=== PATIENT | male | born 1980 | race African-American/Black ===

== ENCOUNTER 2019-02-03 19:51 | Emergency (ER) | payer OTHER ==
[~2019-02-03] VITALS: Ht 167.6 cm; Wt 147.6 kg
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
--- OUTSIDE RECORDS SUMMARY | 2019-02-03 19:55 | XMS REPORT | Continuity of Care Document ---
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 CDTNotes: (Same as: BD Posiflush) Inactive 10/09/2016 [facility] Albuterol 0.833 MG/ML / Ipratropium [place] 0.167 MG/ML Inhalant Solution [DuoNeb] 3 ml, Route: NEB, Drug Form: SOLN, Dosing Weight 154.545, kg, ONCE, PRN Respiratory Protocol, Start date: 07/30/16 6:52:00 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 Inactive 07/30/2016 [facility] Dexamethasone 10 mg, Route: IM, ONCE, Dosing Weight 154.545, kg, Priority: STAT, 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, 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/16 6:51:00 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 Inactive 07/30/2016 [facility] Tylenol with Codeine 120 mg-12 mg/5 mL oral liquid 15 ml, PO, Q6H, PRN Cough, X 2 day, # 120 mL, 0 Refill(s) No Longer Active 07/30/2016 [facility] predniSONE 20 mg oral tablet 60 mg=3 tab, PO, Daily, Take 3 tablets for 60 mg dose, X 2 day, # 6 tab, 0 Refill(s) No Longer Active 07/30/2016 [facility] 200 ACTUAT Albuterol 0.09 MG/ACTUAT Metered Dose Inhaler 2 puff, INHALATION, Q4H, PRN for wheezing, # 9 gm, 0 Refill(s) Active 07/30/2016 [facility] {6 (Azithromycin 250 MG Oral Tablet [Zithromax]) } Pack [Z-PAKS] 250 mg, PO, Daily, Take 2 tablets by mouth the first day then 1 tablet by mouth days 2-5, X 5 day, # 6 tab, 0 Refill(s) Active 07/30/2016 [facility] Albuterol 0.833 MG/ML / Ipratropium [place] 0.167 MG/ML Inhalant Solution [DuoNeb] 6 mL, Route: NEB, Dosing Weight 154.545, kg, ONCE, Start date: 07/30/16 2:18:00 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, 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/16 2:18:00 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 Inactive 07/30/2016 [facility] Tylenol 650 mg, Route: PO, Drug form: TAB, ONCE, Dosing Weight 154.545, kg, Priority: STAT, Start date: 07/30/16 1:50:00 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, 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/16 1:50:00 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 Inactive 07/30/2016 [facility] Allergies, Adverse Reactions, Alerts No Known Medication Allergies Immunizations No Data Provided for This Section Results Order Name Results Value Reference Range Date Interpretation Comments Source ELECTROLYTES AGAP 13.4 10.0 - 20.0 09/21/2018 [facility] ELECTROLYTES eGFR 125 09/21/2018 Result Comment: The eGFR is calculated using the [...] from the National Kidney Disease Education Program (NKDEP) which additionally recommends that when the eGFR is used in patients with extremes of body mass index for purposes of drug dosing, the eGFR should be multiplied by the estimated BMI. [facility] ELECTROLYTES Glucose Lvl 115 70 - 99 09/21/2018 [facility] ELECTROLYTES BUN 14 7 - 22 09/21/2018 [facility] ELECTROLYTES Potassium Lvl 4.4 3.5 - 5.1 09/21/2018 [facility] ELECTROLYTES CO2 24 24 - 32 09/21/2018 [facility] ELECTROLYTES Chloride Lvl 105 95 - 109 09/21/2018 [facility] ELECTROLYTES Calcium Lvl 8.9 8.5 - 10.5 09/21/2018 [facility] ELECTROLYTES Sodium Lvl 138 135 - 145 09/21/2018 [facility] ELECTROLYTES Creatinine Lvl 0.87 0.50 - 1.40 09/21/2018 [facility] HEMATOLOGY Basophils # 0.1 0.0 - 0.2 09/21/2018 [facility] HEMATOLOGY Eosinophils # 0.2 0.0 - 0.5 09/21/2018 [facility] HEMATOLOGY Monocytes # 0.5 0.0 - 0.8 09/21/2018 [facility] HEMATOLOGY Lymphocytes # 1.3 1.0 - 5.5 09/21/2018 [facility] HEMATOLOGY Neutrophils # 4.3 1.5 - 8.1 09/21/2018 [facility] HEMATOLOGY Basophils 0.8 0.0 - 1.0 09/21/2018 [facility] HEMATOLOGY Eosinophils 2.6 0.0 - 4.0 09/21/2018 [facility] HEMATOLOGY Monocytes 8.5 2.0 - 12.0 09/21/2018 [facility] HEMATOLOGY Lymphocytes 20.9 20.0 - 40.0 09/21/2018 [facility] HEMATOLOGY Segs 67.2 45.0 - 75.0 09/21/2018 [facility] HEMATOLOGY Hct 32.2 42.0 - 54.0 09/21/2018 [facility] HEMATOLOGY Hgb 10.5 14.0 - 18.0 09/21/2018 [facility] HEMATOLOGY RBC 3.86 4.70 - 6.10 09/21/2018 [facility] HEMATOLOGY MCHC 32.4 32.0 - 36.0 09/21/2018 [facility] HEMATOLOGY MCH 27.1 27.0 - 31.0 09/21/2018 [facility] HEMATOLOGY MCV 83.6 80.0 - 94.0 09/21/2018 [facility] HEMATOLOGY MPV 8.2 7.4 - 10.4 09/21/2018 [facility] HEMATOLOGY Platelet 277 133 - 450 09/21/2018 [facility] HEMATOLOGY RDW 14.2 11.5 - 14.5 09/21/2018 [facility] HEMATOLOGY WBC 6.4 3.7 - 10.4 09/21/2018 [facility] IMMUNOLOGY Prealbumin 13.4 18.0 - 45.0 09/21/2018 [facility] TOXICOLOGY Vanco Tr TND 202909/20/2018 [facility] TOXICOLOGY Vanco Tr 12.2 09/20/2018 [facility] Culture: Anaerobic No Anaerobes Isolated 09/19/2018 [facility] Gram Stain Report Rare WBC's No Organisms Seen 09/19/2018 [facility] Culture: Aspirate/Body Fluid/Tissue Rare Staphylococcus aureus Refer To Culture # [id number], Collected on 09/19/18 For Susceptibility Results 09/19/2018 [facility] Culture: Anaerobic No Anaerobes Isolated 09/19/2018 [facility] Gram Stain Report No Wbc'S Or Organisms Seen 09/19/2018 [facility] Culture: Aspirate/Body Fluid/Tissue Rare Staphylococcus aureus Refer To Culture # [id number], Collected on 09/19/18 For Susceptibility Results Rare Staphylococcus Species, Not S. aureus Rare Gram Pos Rods Suggestive of Diphtheroids 09/19/2018 [facility] TETRACYCLINE:SUSC:PT:ISOLATE:ORDQN:MONISHA Gram Stain Report Rare WBC's No Organisms Seen 09/19/2018 [facility] TETRACYCLINE:SUSC:PT:ISOLATE:ORDQN:MONISHA Culture: Aspirate/Body Fluid/Tissue Few Staphylococcus aureus 09/19/2018 [facility] TETRACYCLINE:SUSC:PT:ISOLATE:ORDQN:MONISHA Staphylococcus aureus Staphylococcus aureus 09/19/2018 [facility] Culture: Anaerobic No Anaerobes Isolated 09/19/2018 [facility] BLOOD BANK RESULTS ABO/Rh O POS 09/19/2018 [facility] BLOOD BANK RESULTS Antibody Scrn Negative (09/19/18 7:12 AM) 09/19/2018 [facility] CHEM PANEL eGFR 112 09/19/2018 Result Comment: The eGFR is calculated using the [...] from the National Kidney Disease Education Program (NKDEP) which additionally recommends that when the eGFR is used in patients with extremes of body mass index for purposes of drug dosing, the eGFR should be multiplied by the estimated BMI. [facility] CHEM PANEL Creatinine Lvl 0.97 0.50 - 1.40 09/19/2018 [facility] CHEM PANEL BUN 18 7 - 22 09/19/2018 [facility] CHEM PANEL Potassium Lvl 4.3 3.5 - 5.1 09/19/2018 [facility] CHEM PANEL Sodium Lvl 139 135 - 145 09/19/2018 [facility] CHEM PANEL Glucose Lvl 103 70 - 99 09/19/2018 [facility] CHEM PANEL Calcium Lvl 8.7 8.5 - 10.5 09/19/2018 [facility] CHEM PANEL AGAP 12.3 10.0 - 20.0 09/19/2018 [facility] CHEM PANEL CO2 26 24 - 32 09/19/2018 [facility] CHEM PANEL Chloride Lvl 105 95 - 109 09/19/2018 [facility] CHEM PANEL eGFR 114 09/19/2018 Result Comment: The eGFR is calculated using the [...] from the National Kidney Disease Education Program (NKDEP) which additionally recommends that when the eGFR is used in patients with extremes of body mass index for purposes of drug dosing, the eGFR should be multiplied by the estimated BMI. [facility] CHEM PANEL Calcium Lvl 8.7 8.5 - 10.5 09/19/2018 [facility] CHEM PANEL AGAP 7.5 10.0 - 20.0 09/19/2018 [facility] CHEM PANEL Sodium Lvl 135 135 - 145 09/19/2018 [facility] CHEM PANEL Potassium Lvl 4.5 3.5 - 5.1 09/19/2018 [facility] CHEM PANEL Chloride Lvl 104 95 - 109 09/19/2018 [facility] CHEM PANEL CO2 28 24 - 32 09/19/2018 [facility] CHEM PANEL Glucose Lvl 104 70 - 99 09/19/2018 [facility] CHEM PANEL BUN 21 7 - 22 09/19/2018 [facility] CHEM PANEL Creatinine Lvl 0.96 0.50 - 1.40 09/19/2018 [facility] HEMATOLOGY Basophils 0.6 0.0 - 1.0 09/19/2018 [facility] HEMATOLOGY Eosinophils 2.0 0.0 - 4.0 09/19/2018 [facility] Neutrophils # 4.1 1.5 - 8.1 09/19/2018 [facility] Lymphocytes # 1.3 1.0 - 5.5 09/19/2018 [facility] HEMATOLOGY Monocytes # 0.6 0.0 - 0.8 09/19/2018 [facility] Eosinophils # 0.1 0.0 - 0.5 09/19/2018 [facility] Segs 66.5 45.0 - 75.0 09/19/2018 [facility] Lymphocytes 21.7 20.0 - 40.0 09/19/2018 [facility] Monocytes 9.2 2.0 - 12.0 09/19/2018 [facility] PTT 41.3 22.9 - 35.8 09/19/2018 [facility] PT 14.6 12.0 - 14.7 09/19/2018 [facility] INR 1.16 0.85 - 1.17 09/19/2018 [facility] MCH 27.1 27.0 - 31.0 09/19/2018 [facility] MCV 84.2 80.0 - 94.0 09/19/2018 [facility] RBC 4.15 4.70 - 6.10 09/19/2018 [facility] Hct 34.9 42.0 - 54.0 09/19/2018 [facility] Hgb 11.2 14.0 - 18.0 09/19/2018 [facility] MPV 8.3 7.4 - 10.4 09/19/2018 [facility] Platelet 310 133 - 450 09/19/2018 [facility] MCHC 32.2 32.0 - 36.0 09/19/2018 [facility] WBC 6.2 3.7 - 10.4 09/19/2018 [facility] RDW 14.3 11.5 - 14.5 09/19/2018 [facility] AMPICILLIN+SULBACTAM:SUSC:PT:ISOLATE:ORDQN:MONISHA Gram Stain Report No Wbc'S Or Organisms Seen 09/18/2018 [facility] AMPICILLIN+SULBACTAM:SUSC:PT:ISOLATE:ORDQN:MONISHA Culture: Wound/Abscess w/Gram Stain Moderate Staphylococcus aureus Few Group B Streptococcus No susceptibility performed since these organisms are predictably susceptible to penicillin. If patient is penicillin allergic or susceptibility testing for additional antibiotics is clinically warranted please call the laboratory. 09/18/2018 [facility] AMPICILLIN+SULBACTAM:SUSC:PT:ISOLATE:ORDQN:MONISHA Staphylococcus aureus Staphylococcus aureus 09/18/2018 [facility] DRUG SCREEN U Benzodiaz Scr Negative *NA* (09/18/18 12:25 PM) Negative 09/18/2018 [facility] DRUG SCREEN U Cocaine Scr Negative *NA* (09/18/18 12:25 PM) Negative 09/18/2018 [facility] DRUG SCREEN U Opiate Scr Positive *ABN* (09/18/18 12:25 PM) Negative 09/18/2018 [facility] DRUG SCREEN UDS Note See Note (09/18/18 12:25 PM) 09/18/2018 [facility] DRUG SCREEN U Phencyclidine Scr Negative *NA* (09/18/18 12:25 PM) Negative 09/18/2018 [facility] DRUG SCREEN U Cannab Scr Negative *NA* (09/18/18 12:25 PM) Negative 09/18/2018 [facility] DRUG SCREEN U Amph Scr Negative *NA* (09/18/18 12:25 PM) Negative 09/18/2018 [facility] DRUG SCREEN U Herminia Scr Negative *NA* (09/18/18 12:25 PM) Negative 09/18/2018 [facility] URINE AND STOOL UA Mucus Few /LPF None Seen /LPF 09/18/2018 [facility] URINE AND STOOL UA RBC 2 0 - 2 09/18/2018 [facility] URINE AND STOOL UA Bacteria Occasional /HPF None Seen /HPF 09/18/2018 [facility] URINE AND STOOL UA Glucose Negative *NA* (09/18/18 12:25 PM) Negative 09/18/2018 [facility] URINE AND STOOL UA Ketones Negative *NA* (09/18/18 12:25 PM) Negative 09/18/2018 [facility] URINE AND STOOL UA Bili Negative *NA* (09/18/18 12:25 PM) Negative 09/18/2018 [facility] URINE AND STOOL UA Blood Small *ABN* (09/18/18 12:25 PM) Negative 09/18/2018 [facility] URINE AND STOOL UA Sq Epi Few /LPF Few /LPF 09/18/2018 [facility] URINE AND STOOL UA Leuk Est Moderate *ABN* (09/18/18 12:25 PM) Negative 09/18/2018 [facility] URINE AND STOOL UA Protein Negative (09/18/18 12:25 PM) Negative 09/18/2018 [facility] URINE AND STOOL UA WBC 38 0 - 5 09/18/2018 [facility] URINE AND STOOL UA Nitrite Negative (09/18/18 12:25 PM) Negative 09/18/2018 [facility] URINE AND STOOL UA Urobilinogen <=1.0 mg/dL 0.1 - 1.0 09/18/2018 [facility] URINE AND STOOL UA Turbidity Slight *ABN* (09/18/18 12:25 PM) Clear 09/18/2018 [facility] URINE AND STOOL UA pH 5.0 5.0 - 8.0 09/18/2018 [facility] URINE AND STOOL UA Spec Grav 1.019 <=1.030 09/18/2018 [facility] URINE AND STOOL UA Color Yellow *NA* (09/18/18 12:25 PM) Yellow 09/18/2018 [facility] URINE CHEM U Creatinine 142.00 09/18/2018 [facility] URINE CHEM U Sodium 42 09/18/2018 [facility] CARDIAC ENZYMES BNP 192 <=100 pg/mL 09/18/2018 [facility] MPV 8.1 7.4 - 10.4 09/18/2018 [facility] Platelet 310 133 - 450 09/18/2018 [facility] RDW 14.3 11.5 - 14.5 09/18/2018 [facility] RBC 4.20 4.70 - 6.10 09/18/2018 [facility] HEMATOLOGY WBC 7.4 3.7 - 10.4 09/18/2018 [facility] MCH 26.6 27.0 - 31.0 09/18/2018 [facility] MCV 83.5 80.0 - 94.0 09/18/2018 [facility] MCHC 31.9 32.0 - 36.0 09/18/2018 [facility] Hct 35.1 42.0 - 54.0 09/18/2018 [facility] Hgb 11.2 14.0 - 18.0 09/18/2018 [facility] Eosinophils # 0.1 0.0 - 0.5 09/18/2018 [facility] HEMATOLOGY Monocytes # 0.7 0.0 - 0.8 09/18/2018 [facility] HEMATOLOGY Basophils 0.5 0.0 - 1.0 09/18/2018 [facility] HEMATOLOGY Eosinophils 1.3 0.0 - 4.0 09/18/2018 [facility] HEMATOLOGY Monocytes 10.1 2.0 - 12.0 09/18/2018 [facility] HEMATOLOGY Neutrophils # 5.4 1.5 - 8.1 09/18/2018 [facility] Lymphocytes # 1.1 1.0 - 5.5 09/18/2018 [facility] HEMATOLOGY Segs 73.1 45.0 - 75.0 09/18/2018 [facility] HEMATOLOGY Lymphocytes 15.0 20.0 - 40.0 09/18/2018 [facility] CARDIAC ENZYMES Troponin-I <0.02 0.00 - 0.40 08/26/2018 [facility] CHEM PANEL Globulin 5.5 2.7 - 4.2 08/26/2018 [facility] CHEM PANEL AGAP 5.8 10.0 - 20.0 08/26/2018 [facility] CHEM PANEL B/C Ratio 19 6 - 25 08/26/2018 [facility] CHEM PANEL A/G Ratio 0.6 0.7 - 1.6 08/26/2018 [facility] CHEM PANEL Alk Phos 107 39 - 136 08/26/2018 [facility] CHEM PANEL ALT 37 0 - 65 08/26/2018 [facility] CHEM PANEL AST 19 0 - 37 08/26/2018 [facility] CHEM PANEL Bili Total 0.5 0.2 - 1.3 08/26/2018 [facility] CHEM PANEL eGFR 83 08/26/2018 Result Comment: The eGFR is calculated using the [...] from the National Kidney Disease Education Program (NKDEP) which additionally recommends that when the eGFR is used in patients with extremes of body mass index for purposes of drug dosing, the eGFR should be multiplied by the estimated BMI. [facility] CHEM PANEL Creatinine Lvl 1.11 0.50 - 1.40 08/26/2018 [facility] CHEM PANEL Potassium Lvl 3.8 3.5 - 5.1 08/26/2018 [facility] CHEM PANEL BUN 21 7 - 22 08/26/2018 [facility] CHEM PANEL Glucose Lvl 130 70 - 99 08/26/2018 [facility] CHEM PANEL Sodium Lvl 141 135 - 145 08/26/2018 [facility] CHEM PANEL CO2 32 24 - 32 08/26/2018 [facility] CHEM PANEL Calcium Lvl 8.3 8.5 - 10.5 08/26/2018 [facility] CHEM PANEL Chloride Lvl 107 95 - 109 08/26/2018 [facility] CHEM PANEL Total Protein 8.7 6.4 - 8.4 08/26/2018 [facility] CHEM PANEL Albumin Lvl 3.2 3.5 - 5.0 08/26/2018 [facility] HEMATOLOGY PTT 42.8 22.9 - 35.8 08/26/2018 [facility] HEMATOLOGY INR 1.23 0.85 - 1.17 08/26/2018 [facility] HEMATOLOGY PT 15.3 12.0 - 14.7 08/26/2018 [facility] WBC 8.0 3.7 - 10.4 08/26/2018 [facility] RBC 4.11 4.70 - 6.10 08/26/2018 [facility] Hgb 11.4 14.0 - 18.0 08/26/2018 [facility] Hct 34.7 42.0 - 54.0 08/26/2018 [facility] RDW 14.0 11.5 - 14.5 08/26/2018 [facility] Platelet 276 133 - 450 08/26/2018 [facility] MPV 8.8 7.4 - 10.4 08/26/2018 [facility] MCV 84.5 80.0 - 94.0 08/26/2018 [facility] MCH 27.7 27.0 - 31.0 08/26/2018 [facility] MCHC 32.8 32.0 - 36.0 08/26/2018 [facility] Neutrophils # 5.8 1.5 - 8.1 08/26/2018 [facility] Lymphocytes # 1.4 1.0 - 5.5 08/26/2018 [facility] Monocytes # 0.6 0.0 - 0.8 08/26/2018 [facility] HEMATOLOGY Eosinophils # 0.1 0.0 - 0.5 08/26/2018 [facility] HEMATOLOGY Basophils # 0.1 0.0 - 0.2 08/26/2018 [facility] HEMATOLOGY Segs 72.8 45.0 - 75.0 08/26/2018 [facility] HEMATOLOGY Lymphocytes 17.5 20.0 - 40.0 08/26/2018 [facility] HEMATOLOGY Monocytes 7.9 2.0 - 12.0 08/26/2018 [facility] HEMATOLOGY Eosinophils 1.1 0.0 - 4.0 08/26/2018 [facility] HEMATOLOGY Basophils 0.7 0.0 - 1.0 08/26/2018 [facility] CARDIAC ENZYMES Total CK 105 12 - 191 03/07/2018 [facility] CARDIAC ENZYMES Troponin-I <0.02 0.00 - 0.40 03/07/2018 [facility] CARDIAC ENZYMES BNP 200 <=100 pg/mL 03/07/2018 [facility] CHEM PANEL Phosphorus 3.2 2.5 - 4.5 03/07/2018 [facility] CHEM PANEL Lipase Lvl 63 73 - 393 03/07/2018 [facility] CHEM PANEL Magnesium Lvl 2.0 1.8 - 2.4 03/07/2018 [facility] ELECTROLYTES AGAP 15.0 10.0 - 20.0 03/07/2018 [facility] ELECTROLYTES B/C Ratio 16 6 - 25 03/07/2018 [facility] ELECTROLYTES A/G Ratio 0.7 0.7 - 1.6 03/07/2018 [facility] ELECTROLYTES Globulin 4.9 2.7 - 4.2 03/07/2018 [facility] ELECTROLYTES eGFR 125 03/07/2018 Result Comment: The eGFR is calculated using the [...] from the National Kidney Disease Education Program (NKDEP) which additionally recommends that when the eGFR is used in patients with extremes of body mass index for purposes of drug dosing, the eGFR should be multiplied by the estimated BMI. [facility] ELECTROLYTES Alk Phos 70 39 - 136 03/07/2018 [facility] ELECTROLYTES ALT 32 0 - 65 03/07/2018 [facility] ELECTROLYTES AST 20 0 - 37 03/07/2018 [facility] ELECTROLYTES Bili Total 0.8 0.2 - 1.3 03/07/2018 [facility] ELECTROLYTES Total Protein 8.5 6.4 - 8.4 03/07/2018 [facility] ELECTROLYTES Albumin Lvl 3.6 3.5 - 5.0 03/07/2018 [facility] ELECTROLYTES CO2 24 24 - 32 03/07/2018 [facility] ELECTROLYTES Calcium Lvl 8.5 8.5 - 10.5 03/07/2018 [facility] ELECTROLYTES Chloride Lvl 107 95 - 109 03/07/2018 [facility] ELECTROLYTES Creatinine Lvl 0.87 0.50 - 1.40 03/07/2018 [facility] ELECTROLYTES Sodium Lvl 142 135 - 145 03/07/2018 [facility] ELECTROLYTES Potassium Lvl 4.0 3.5 - 5.1 03/07/2018 [facility] ELECTROLYTES BUN 14 7 - 22 03/07/2018 [facility] ELECTROLYTES Glucose Lvl 101 70 - 99 03/07/2018 [facility] HEMATOLOGY Lymphocytes 23.2 20.0 - 40.0 03/07/2018 [facility] HEMATOLOGY Segs 62.9 45.0 - 75.0 03/07/2018 [facility] HEMATOLOGY Monocytes 9.8 2.0 - 12.0 03/07/2018 [facility] HEMATOLOGY Eosinophils # 0.2 0.0 - 0.5 03/07/2018 [facility] HEMATOLOGY Eosinophils 3.2 0.0 - 4.0 03/07/2018 [facility] HEMATOLOGY Neutrophils # 3.0 1.5 - 8.1 03/07/2018 [facility] HEMATOLOGY Basophils 0.9 0.0 - 1.0 03/07/2018 [facility] HEMATOLOGY Monocytes # 0.5 0.0 - 0.8 03/07/2018 [facility] HEMATOLOGY Lymphocytes # 1.1 1.0 - 5.5 03/07/2018 [facility] HEMATOLOGY PT 14.5 12.0 - 14.7 03/07/2018 [facility] HEMATOLOGY INR 1.13 0.85 - 1.17 03/07/2018 [facility] HEMATOLOGY Platelet 279 133 - 450 03/07/2018 [facility] HEMATOLOGY RDW 13.6 11.5 - 14.5 03/07/2018 [facility] HEMATOLOGY MCHC 32.7 32.0 - 36.0 03/07/2018 [facility] MPV 8.6 7.4 - 10.4 03/07/2018 [facility] HEMATOLOGY Hgb 12.6 14.0 - 18.0 03/07/2018 [facility] RBC 4.47 4.70 - 6.10 03/07/2018 [facility] HEMATOLOGY MCV 85.9 80.0 - 94.0 03/07/2018 [facility] HEMATOLOGY Hct 38.4 42.0 - 54.0 03/07/2018 [facility] MCH 28.1 27.0 - 31.0 03/07/2018 [facility] WBC 4.8 3.7 - 10.4 03/07/2018 [facility] CHEM PANEL eGFR 129 01/28/2017 Result Comment: The eGFR is calculated using the [...] from the National Kidney Disease Education Program (NKDEP) which additionally recommends that when the eGFR is used in patients with extremes of body mass index for purposes of drug dosing, the eGFR should be multiplied by the estimated BMI. [facility] CHEM PANEL Potassium Lvl 3.8 3.5 - 5.1 01/28/2017 [facility] CHEM PANEL Chloride Lvl 103 95 - 109 01/28/2017 [facility] CHEM PANEL Sodium Lvl 140 135 - 145 01/28/2017 [facility] CHEM PANEL AGAP 13.8 10.0 - 20.0 01/28/2017 [facility] CHEM PANEL CO2 27 24 - 32 01/28/2017 [facility] CHEM PANEL Calcium Lvl 8.8 8.5 - 10.5 01/28/2017 [facility] CHEM PANEL Glucose Lvl 127 70 - 99 01/28/2017 [facility] CHEM PANEL BUN 17 7 - 22 01/28/2017 [facility] CHEM PANEL Creatinine Lvl 0.82 0.50 - 1.40 01/28/2017 [facility] CHEM PANEL Magnesium Lvl 2.3 1.8 - 2.4 01/28/2017 [facility] ELECTROLYTES AGAP 12.5 10.0 - 20.0 01/27/2017 [facility] ELECTROLYTES eGFR 121 01/27/2017 Result Comment: The eGFR is calculated using the [...] from the National Kidney Disease Education Program (NKDEP) which additionally recommends that when the eGFR is used in patients with extremes of body mass index for purposes of drug dosing, the eGFR should be multiplied by the estimated BMI. [facility] ELECTROLYTES BUN 15 7 - 22 01/27/2017 [facility] ELECTROLYTES Creatinine Lvl 0.92 0.50 - 1.40 01/27/2017 [facility] ELECTROLYTES Glucose Lvl 113 70 - 99 01/27/2017 [facility] ELECTROLYTES Potassium Lvl 3.5 3.5 - 5.1 01/27/2017 [facility] ELECTROLYTES Sodium Lvl 141 135 - 145 01/27/2017 [facility] ELECTROLYTES CO2 27 24 - 32 01/27/2017 [facility] ELECTROLYTES Calcium Lvl 8.4 8.5 - 10.5 01/27/2017 [facility] ELECTROLYTES Chloride Lvl 105 95 - 109 01/27/2017 [facility] HEMATOLOGY Lymphocytes # 1.6 1.0 - 5.5 01/27/2017 [facility] HEMATOLOGY Eosinophils # 0.1 0.0 - 0.5 01/27/2017 [facility] HEMATOLOGY Monocytes # 0.5 0.0 - 0.8 01/27/2017 [facility] HEMATOLOGY Basophils 0.6 0.0 - 1.0 01/27/2017 [facility] HEMATOLOGY Segs-Bands # 3.9 1.5 - 8.1 01/27/2017 [facility] HEMATOLOGY Monocytes 7.6 2.0 - 12.0 01/27/2017 [facility] Lymphocytes 26.0 20.0 - 40.0 01/27/2017 [facility] HEMATOLOGY Eosinophils 1.3 0.0 - 4.0 01/27/2017 [facility] HEMATOLOGY Segs 64.5 45.0 - 75.0 01/27/2017 [facility] MPV 8.6 7.4 - 10.4 01/27/2017 [facility] RBC 4.48 4.70 - 6.10 01/27/2017 [facility] HEMATOLOGY WBC 6.0 3.7 - 10.4 01/27/2017 [facility] HEMATOLOGY Hgb 12.3 14.0 - 18.0 01/27/2017 [facility] Hct 37.5 42.0 - 54.0 01/27/2017 [facility] MCHC 32.9 32.0 - 36.0 01/27/2017 [facility] RDW 15.3 11.5 - 14.5 01/27/2017 [facility] Platelet 278 133 - 450 01/27/2017 [facility] MCH 27.5 27.0 - 31.0 01/27/2017 [facility] MCV 83.7 80.0 - 94.0 01/27/2017 [facility] CARDIAC ENZYMES Total CK 363 12 - 191 01/27/2017 [facility] CARDIAC ENZYMES Troponin-I <0.02 0.00 - 0.40 01/27/2017 [facility] CARDIAC ENZYMES CK MB <0.5 0.5 - 3.6 01/27/2017 [facility] CARDIAC ENZYMES Troponin-I <0.02 0.00 - 0.40 01/26/2017 [facility] CARDIAC ENZYMES CK MB <0.5 0.5 - 3.6 01/26/2017 [facility] CARDIAC ENZYMES Total CK 433 12 - 191 01/26/2017 [facility] CARDIAC ENZYMES BNP 377 <=100 pg/mL 01/26/2017 [facility] CHEM PANEL Magnesium Lvl 2.2 1.8 - 2.4 01/26/2017 [facility] ELECTROLYTES AGAP 10.0 10.0 - 20.0 01/26/2017 [facility] ELECTROLYTES eGFR 129 01/26/2017 Result Comment: The eGFR is calculated using the [...] from the National Kidney Disease Education Program (NKDEP) which additionally recommends that when the eGFR is used in patients with extremes of body mass index for purposes of drug dosing, the eGFR should be multiplied by the estimated BMI. [facility] ELECTROLYTES Sodium Lvl 142 135 - 145 01/26/2017 [facility] ELECTROLYTES BUN 15 7 - 22 01/26/2017 [facility] ELECTROLYTES Potassium Lvl 4.0 3.5 - 5.1 01/26/2017 [facility] ELECTROLYTES Creatinine Lvl 0.82 0.50 - 1.40 01/26/2017 [facility] ELECTROLYTES Calcium Lvl 8.6 8.5 - 10.5 01/26/2017 [facility] ELECTROLYTES CO2 29 24 - 32 01/26/2017 [facility] ELECTROLYTES Chloride Lvl 107 95 - 109 01/26/2017 [facility] ELECTROLYTES Glucose Lvl 100 70 - 99 01/26/2017 [facility] HEMATOLOGY Segs 57.7 45.0 - 75.0 01/26/2017 [facility] Monocytes 7.5 2.0 - 12.0 01/26/2017 [facility] Lymphocytes 33.1 20.0 - 40.0 01/26/2017 [facility] Eosinophils 1.0 0.0 - 4.0 01/26/2017 [facility] Segs-Bands # 3.4 1.5 - 8.1 01/26/2017 [facility] HEMATOLOGY Basophils 0.7 0.0 - 1.0 01/26/2017 [facility] Lymphocytes # 2.0 1.0 - 5.5 01/26/2017 [facility] HEMATOLOGY Monocytes # 0.4 0.0 - 0.8 01/26/2017 [facility] Eosinophils # 0.1 0.0 - 0.5 01/26/2017 [facility] MPV 8.6 7.4 - 10.4 01/26/2017 [facility] Platelet 304 133 - 450 01/26/2017 [facility] RBC 4.74 4.70 - 6.10 01/26/2017 [facility] Hgb 13.0 14.0 - 18.0 01/26/2017 [facility] HEMATOLOGY WBC 5.9 3.7 - 10.4 01/26/2017 [facility] HEMATOLOGY RDW 15.1 11.5 - 14.5 01/26/2017 [facility] HEMATOLOGY MCV 84.4 80.0 - 94.0 01/26/2017 [facility] HEMATOLOGY MCHC 32.4 32.0 - 36.0 01/26/2017 [facility] HEMATOLOGY Hct 40.1 42.0 - 54.0 01/26/2017 [facility] MCH 27.3 27.0 - 31.0 01/26/2017 [facility] CARDIAC ENZYMES BNP 295 <=100 pg/mL 01/26/2017 [facility] CARDIAC ENZYMES CK MB 0.9 0.5 - 3.6 01/26/2017 [facility] CARDIAC ENZYMES Troponin-I 0.02 0.00 - 0.40 01/26/2017 [facility] CARDIAC ENZYMES Total CK 485 12 - 191 01/26/2017 [facility] CARDIAC ENZYMES CK MB Index 0.2 0.0 - 2.5 01/26/2017 [facility] CHEM PANEL Magnesium Lvl 2.0 1.8 - 2.4 01/26/2017 [facility] HEMATOLOGY PTT 31.7 22.9 - 35.8 01/26/2017 [facility] MCH 27.3 27.0 - 31.0 01/26/2017 [facility] HEMATOLOGY WBC 5.4 3.7 - 10.4 01/26/2017 [facility] HEMATOLOGY MCV 84.1 80.0 - 94.0 01/26/2017 [facility] HEMATOLOGY Hgb 12.8 14.0 - 18.0 01/26/2017 [facility] HEMATOLOGY Hct 39.3 42.0 - 54.0 01/26/2017 [facility] HEMATOLOGY RBC 4.67 4.70 - 6.10 01/26/2017 [facility] HEMATOLOGY MPV 8.4 7.4 - 10.4 01/26/2017 [facility] HEMATOLOGY RDW 15.2 11.5 - 14.5 01/26/2017 [facility] HEMATOLOGY MCHC 32.5 32.0 - 36.0 01/26/2017 [facility] HEMATOLOGY Platelet 313 133 - 450 01/26/2017 [facility] HEMATOLOGY INR 1.10 0.85 - 1.17 01/26/2017 [facility] HEMATOLOGY PT 14.4 12.0 - 14.7 01/26/2017 [facility] HEMATOLOGY Eosinophils 1.7 0.0 - 4.0 01/26/2017 [facility] HEMATOLOGY Basophils # 0.1 0.0 - 0.2 01/26/2017 [facility] HEMATOLOGY Segs 54.8 45.0 - 75.0 01/26/2017 [facility] HEMATOLOGY Lymphocytes 35.1 20.0 - 40.0 01/26/2017 [facility] HEMATOLOGY Monocytes 7.0 2.0 - 12.0 01/26/2017 [facility] HEMATOLOGY Lymphocytes # 1.9 1.0 - 5.5 01/26/2017 [facility] HEMATOLOGY Monocytes # 0.4 0.0 - 0.8 01/26/2017 [facility] HEMATOLOGY Eosinophils # 0.1 0.0 - 0.5 01/26/2017 [facility] HEMATOLOGY Basophils 1.4 0.0 - 1.0 01/26/2017 [facility] HEMATOLOGY Segs-Bands # 3.0 1.5 - 8.1 01/26/2017 [facility] CHEM PANEL Lactic Acid Lvl 0.9 0.5 - 2.2 01/06/2017 [facility] CARDIAC ENZYMES BNP 388 <=100 pg/mL 01/06/2017 [facility] CARDIAC ENZYMES Troponin-I <0.02 0.00 - 0.40 01/06/2017 [facility] CARDIAC ENZYMES CK MB <0.5 0.5 - 3.6 01/06/2017 [facility] CARDIAC ENZYMES Total CK 136 12 - 191 01/06/2017 [facility] CARDIAC ENZYMES CK MB Index <0.4 0.0 - 2.5 01/06/2017 [facility] CHEM PANEL BUN 17 7 - 22 01/06/2017 [facility] CHEM PANEL Creatinine Lvl 0.95 0.50 - 1.40 01/06/2017 [facility] CHEM PANEL Sodium Lvl 140 135 - 145 01/06/2017 [facility] CHEM PANEL Potassium Lvl 3.8 3.5 - 5.1 01/06/2017 [facility] CHEM PANEL Glucose Lvl 113 70 - 99 01/06/2017 [facility] CHEM PANEL A/G Ratio 0.7 0.7 - 1.6 01/06/2017 [facility] CHEM PANEL Globulin 4.4 2.7 - 4.2 01/06/2017 [facility] CHEM PANEL B/C Ratio 18 6 - 25 01/06/2017 [facility] CHEM PANEL Bili Total 1.0 0.2 - 1.3 01/06/2017 [facility] CHEM PANEL Alk Phos 66 39 - 136 01/06/2017 [facility] CHEM PANEL AST 22 0 - 37 01/06/2017 [facility] CHEM PANEL AGAP 7.8 10.0 - 20.0 01/06/2017 [facility] CHEM PANEL Calcium Lvl 8.5 8.5 - 10.5 01/06/2017 [facility] CHEM PANEL Total Protein 7.6 6.4 - 8.4 01/06/2017 [facility] CHEM PANEL Albumin Lvl 3.2 3.5 - 5.0 01/06/2017 [facility] CHEM PANEL Chloride Lvl 107 95 - 109 01/06/2017 [facility] CHEM PANEL CO2 29 24 - 32 01/06/2017 [facility] CHEM PANEL ALT 36 0 - 65 01/06/2017 [facility] CHEM PANEL eGFR 117 01/06/2017 Result Comment: The eGFR is calculated using the [...] from the National Kidney Disease Education Program (NKDEP) which additionally recommends that when the eGFR is used in patients with extremes of body mass index for purposes of drug dosing, the eGFR should be multiplied by the estimated BMI. [facility] HEMATOLOGY INR 1.09 0.85 - 1.17 01/06/2017 [facility] HEMATOLOGY PT 14.3 12.0 - 14.7 01/06/2017 [facility] HEMATOLOGY PTT 34.5 22.9 - 35.8 01/06/2017 [facility] HEMATOLOGY MPV 8.7 7.4 - 10.4 01/06/2017 [facility] HEMATOLOGY Platelet 280 133 - 450 01/06/2017 [facility] HEMATOLOGY RDW 15.1 11.5 - 14.5 01/06/2017 [facility] MCHC 32.4 32.0 - 36.0 01/06/2017 [facility] MCH 27.3 27.0 - 31.0 01/06/2017 [facility] Hgb 12.3 14.0 - 18.0 01/06/2017 [facility] HEMATOLOGY Hct 37.9 42.0 - 54.0 01/06/2017 [facility] HEMATOLOGY MCV 84.2 80.0 - 94.0 01/06/2017 [facility] HEMATOLOGY WBC 6.7 3.7 - 10.4 01/06/2017 [facility] HEMATOLOGY RBC 4.51 4.70 - 6.10 01/06/2017 [facility] HEMATOLOGY Eosinophils # 0.1 0.0 - 0.5 01/06/2017 [facility] HEMATOLOGY Basophils # 0.1 0.0 - 0.2 01/06/2017 [facility] HEMATOLOGY Monocytes # 0.5 0.0 - 0.8 01/06/2017 [facility] HEMATOLOGY Lymphocytes # 1.8 1.0 - 5.5 01/06/2017 [facility] Eosinophils 1.4 0.0 - 4.0 01/06/2017 [facility] HEMATOLOGY Segs-Bands # 4.2 1.5 - 8.1 01/06/2017 [facility] Basophils 0.8 0.0 - 1.0 01/06/2017 [facility] Monocytes 7.5 2.0 - 12.0 01/06/2017 [facility] HEMATOLOGY Segs 63.6 45.0 - 75.0 01/06/2017 [facility] Lymphocytes 26.7 20.0 - 40.0 01/06/2017 [facility] CARDIAC ENZYMES BNP 260 <=100 pg/mL 10/09/2016 [facility] CARDIAC ENZYMES Troponin-I <0.02 0.00 - 0.40 10/09/2016 [facility] CARDIAC ENZYMES CK MB <0.5 0.5 - 3.6 10/09/2016 [facility] CARDIAC ENZYMES Total CK 175 12 - 191 10/09/2016 [facility] CARDIAC ENZYMES CK MB Index <0.3 0.0 - 2.5 10/09/2016 [facility] CHEM PANEL eGFR 127 10/09/2016 Result Comment: The eGFR is calculated using the [...] from the National Kidney Disease Education Program (NKDEP) which additionally recommends that when the eGFR is used in patients with extremes of body mass index for purposes of drug dosing, the eGFR should be multiplied by the estimated BMI. [facility] CHEM PANEL Creatinine Lvl 0.87 0.50 - 1.40 10/09/2016 [facility] CHEM PANEL Sodium Lvl 136 135 - 145 10/09/2016 [facility] CHEM PANEL BUN 9 7 - 22 10/09/2016 [facility] CHEM PANEL Glucose Lvl 120 70 - 99 10/09/2016 [facility] CHEM PANEL B/C Ratio 10 6 - 25 10/09/2016 [facility] CHEM PANEL A/G Ratio 0.6 0.7 - 1.6 10/09/2016 [facility] CHEM PANEL ALT 53 0 - 65 10/09/2016 [facility] CHEM PANEL Globulin 5.6 2.7 - 4.2 10/09/2016 [facility] CHEM PANEL Bili Total 1.4 0.2 - 1.3 10/09/2016 [facility] CHEM PANEL AGAP 12.7 10.0 - 20.0 10/09/2016 [facility] CHEM PANEL AST 34 0 - 37 10/09/2016 [facility] CHEM PANEL Alk Phos 98 39 - 136 10/09/2016 [facility] CHEM PANEL Potassium Lvl 3.7 3.5 - 5.1 10/09/2016 [facility] CHEM PANEL CO2 28 24 - 32 10/09/2016 [facility] CHEM PANEL Calcium Lvl 8.5 8.5 - 10.5 10/09/2016 [facility] CHEM PANEL Total Protein 8.8 6.4 - 8.4 10/09/2016 [facility] CHEM PANEL Albumin Lvl 3.2 3.5 - 5.0 10/09/2016 [facility] CHEM PANEL Chloride Lvl 99 95 - 109 10/09/2016 [facility] HEMATOLOGY Hgb 11.7 14.0 - 18.0 10/09/2016 [facility] HEMATOLOGY RBC 4.29 4.70 - 6.10 10/09/2016 [facility] HEMATOLOGY WBC 7.0 3.7 - 10.4 10/09/2016 [facility] HEMATOLOGY MCV 81.2 80.0 - 94.0 10/09/2016 [facility] HEMATOLOGY Platelet 278 133 - 450 10/09/2016 [facility] RDW 14.7 11.5 - 14.5 10/09/2016 [facility] MCHC 33.6 32.0 - 36.0 10/09/2016 [facility] MCH 27.2 27.0 - 31.0 10/09/2016 [facility] MPV 8.7 7.4 - 10.4 10/09/2016 [facility] Hct 34.8 42.0 - 54.0 10/09/2016 [facility] Lymphocytes # 1.4 1.0 - 5.5 10/09/2016 [facility] Monocytes # 0.6 0.0 - 0.8 10/09/2016 [facility] Segs 70.9 45.0 - 75.0 10/09/2016 [facility] Lymphocytes 19.8 20.0 - 40.0 10/09/2016 [facility] Monocytes 8.2 2.0 - 12.0 10/09/2016 [facility] Eosinophils 0.7 0.0 - 4.0 10/09/2016 [facility] Basophils 0.4 0.0 - 1.0 10/09/2016 [facility] Segs-Bands # 5.0 1.5 - 8.1 10/09/2016 [facility] Pathology Reports No Data Provided for This Section Diagnostic Reports Report Value Date Source Extremity Lower uni CTA CTA right lower extremity Clinical Indication: Evaluate for right femoral artery pseudoaneurysm. History of heart catheterization one month ago. Comparison: None. TECHNIQUE: CT angiography of the right lower extremity was performed from the level of the lower abdomen/pelvis to the feet after administration of iodinated contrast. Coronal and sagittal reconstructions were obtained. CT imaging was performed with exposure control parameters to reduce radiation dose. 75 cc of omnipaque contrast material was used for the exam. Volume rendered reconstruction imaging with postprocessing was also performed of the arterial vessels. CT Radiation Dose DLP 2602.95 mGy-cm FINDINGS: PELVIC ARTERIAL EVALUATION: Visualized right common iliac, internal iliac, and external iliac arteries appear unremarkable. PELVIS: No pelvic mass or adenopathy. BLADDER: Unremarkable. LOWER EXTREMITY ARTERIAL EVALUATION: RIGHT: COMMON FEMORAL: Unremarkable. DEEP FEMORAL: Unremarkable. SUPERFICIAL FEMORAL: Unremarkable. POPLITEAL: Unremarkable. TIBIOPERONEAL TRUNK: Unremarkable. ANTERIOR TIBIAL: Unremarkable. POSTERIOR TIBIAL: Unremarkable. PERONEAL: Unremarkable. DORSALIS PEDIS: Unremarkable. NON-VASCULAR LOWER EXTREMITY STRUCTURES: There are no fractures or dislocations noted. There is subcutaneous fat stranding and small 2.4 x 2.1 cm fluid collection in the right inguinal region. Mild skin thickening is present. IMPRESSION: 1. Unremarkable CT angiography of right lower extremity. No evidence of pseudoaneurysm. 2. Skin thickening and subcutaneous fat stranding in the right inguinal region is suggestive of cellulitis. Associated small 2.4 x 2.1 cm fluid collection may represent hematoma/seroma or abscess. SL: LANCE 09/18/2018 [facility] Chest 2 views DX Patient Name: LINSEY NAVARRO : 1980; Age: 38 years y/o Male MR: [id number] Study: Chest 2 views DX 09/18/2018 10:23 PM CDT Ordering Physician: Deyvi Del Castillo MD Comparison: Chest radiograph 04/23/2018 Clinical Indication: - abnormal breath sounds Findings: Stable mild linear airspace opacity at the lateral aspect of the left mid lung compatible with atelectasis or scarring. No focal consolidation, pleural effusion or pneumothorax. Stable marked enlargement of the cardiac silhouette with splaying of the main bronchi suggestive of left atrial enlargement. No acute osseous abnormalities. IMPRESSION: Stable marked cardiomegaly. SL: KENNY 09/18/2018 [facility] Retroperitoneal Complete US Clinical Indication: - jose; Comparison: None TECHNIQUE: Multiple longitudinal and transverse real time sonographic images of the kidneys and urinary bladder are obtained. FINDINGS: KIDNEY: The right kidney measures 11 x 5.5 x 5.7 cm. The left kidney measures 11 x 6 x 4.3 cm. The kidneys are normal in size, shape, contour, and position. The cortices are normal in thickness and the corticomedulluary differentiation is maintained. There is no hydronephrosis, nephrolithiasis, or abnormal perinephric collections. BLADDER: Scanning through the pelvis reveals the bladder to be partially distended with anechoic urine. AORTA AND IVC: The visualized portions appear unremarkable. Common iliac arteries not visualized ASCITES: No ascites noted. IMPRESSION: 1. Unremarkable renal U/S SL: MARTHA 09/18/2018 [facility] Ext Lower non vascular US Exam: Ext Lower non vascular US Clinical Indication: Right groin. Abscess vs pseudoaneurysm vs hematoma. cath on aug 18. Comparison: None. TECHNIQUE: Targeted grayscale and color Doppler sonographic evaluation of the area of interest in the right inguinal region was performed. FINDINGS: Limited sonographic evaluation of the right inguinal region demonstrates focal heterogeneous hypoechoic area in the subcutaneous tissues measuring 2.8 x 1.3 x 2.6 cm. No internal vascularity demonstrated in the collection to suggest pseudoaneurysm. No other abnormality identified. IMPRESSION: Focal right inguinal heterogeneous collection, most likely postprocedural hematoma. Superimposed infection cannot be excluded in this exam and clinical correlation is advised. No evidence of pseudoaneurysm. SL: [id number] 09/18/2018 [facility] Ext Lower Arterial Doppler unilat US Clinical Indication: - recent heart cath, eval pseudoaneurysm Comparison: None TECHNIQUE: Sonographic evaluation of the right groin soft tissues was performed. FINDINGS: There is a hypoechoic collection without flow noted superficial to the femoral artery consistent with a small hematoma which measures 2.5 x 1.7 x 2.3. Morphologically normal lymph nodes noted in the right kidney measuring 1.8 cm in short axis. IMPRESSION: Small right groin hematoma. No evidence of pseudoaneurysm. SL: [id number] 08/26/2018 [facility] Foot series DX RIGHT FOOT RADIOGRAPH 3 VIEW CLINICAL INDICATION: Right foot pain and swelling - right lateral foot pain worse with walking COMPARISON: None IMPRESSION: There is generalized soft tissue swelling of the foot and ankle. No subcutaneous emphysema or radiopaque foreign bodies are identified. No acute bony abnormalities are visualized. The joint spaces are maintained. SL:16 07/19/2018 [facility] Spine lumbar 2 or 3 views DX Patient Name: LINSEY NAVARRO : 1980; Age: 38 years Male MR: [id number] Study: Spine lumbar 2 or 3 views DX 06/06/2018 10:22 AM 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 Clinical Indication: - low back pain RLE radiculopathy. COMPARISON: None FINDINGS: Views: 3 Posterior elements appear intact. There is no acute fracture or dislocation evident. Alignment of the lumbar spine is within normal limits. Intervertebral disc heights appear preserved. There appear to be 6 nonrib-bearing lumbar vertebrae present. Osseous structures appear intact. No aggressive osseous lesion evident. If there is further concern, recommend follow-up radiographs or MRI for complete assessment. IMPRESSION: 1. No acute abnormality demonstrated. 2. Transitional lumbosacral anatomy. There are 6 nonrib-bearing lumbar vertebrae. SL: [id number] 06/06/2018 [facility] 1view DX EXAM: XR CHEST 1 VIEW DATE: 04/23/2018 5:15 PM CDT INDICATION: Chest pain. COMPARISON: 03/15/2018. TECHNIQUE: Frontal radiograph of the chest was obtained. FINDINGS: No focal consolidation or pneumothorax is identified. The cardiac silhouette is moderately enlarged, with central pulmonary vascular congestion. The costophrenic recesses are sharp and without effusion. No acute osseous abnormality is noted. IMPRESSION: Enlargement of the cardiac silhouette with central pulmonary vascular congestion and pulmonary edema. SL: [id number] 04/23/2018 [facility] 2 views DX Clinical Indication: Shortness of breath and chest pain. Comparison: Chest radiograph, 03/07/2018. FINDINGS: The PA and lateral chest radiographs shows hypoexpanded lung volumes without interstitial or airspace opacities, pleural effusions or pneumothorax. Stable moderate enlargement of the cardiac silhouette. There is slightly increased extent of pulmonary venous congestion. The trachea is midline. There are no clinically significant osseous abnormalities noted. IMPRESSION: Stable moderate cardiomegaly and slight increase in pulmonary venous congestion compared to the prior radiograph from 03/07/2018. SL: [id number] 03/15/2018 [facility] 2 views DX Clinical Indication: - cough, sob Comparison: 01/27/2017 FINDINGS: The PA and lateral chest radiographs shows normal lung volumes without interstitial or airspace opacities, pleural effusions or pneumothorax. The heart is moderately enlarged but stable. There is mild pulmonary vascular congestion. The trachea is midline. There are no clinically significant osseous abnormalities noted. IMPRESSION: 1. Stable cardiomegaly. There is no evidence of heart failure . SL: [id number] 03/07/2018 [facility] 1view DX Clinical Indication:37 years Male with Coughing - chf, pna Comparison: Chest x-ray 01/26/2017 FINDINGS: Examination is limited by patient's body habitus Lines: None. The single frontal chest radiograph shows normal lung volumes. Scattered interstitial opacities in both lungs No pleural effusion. No pneumothorax. Cardiac silhouette is enlarged, stable. Pulmonary vasculature is normal. The trachea is midline. There are no acute osseous abnormalities noted. IMPRESSION: 1. No significant changes from chest x-ray on 01/26/2017. 2. Cardiomegaly with mild interstitial edema. 01/27/2017 [facility] 1view DX Study: Chest 1view DX Clinical Indication: - chf? Comparison: Chest x-ray from 01/06/2017 FINDINGS: Cardiac silhouette is mildly enlarged. Mild pulmonary edema is seen. There is no pleural effusion or pneumothorax. The osseous structures are unremarkable. IMPRESSION: Mild pulmonary edema. SL: [id number] 01/26/2017 [facility] [facility] Patient Name: LINSEY NAVARRO : 1980; Age: 36 years Male MR: [id number] Study: Chest Pulmonary Embolism CTA 01/06/2017 5:41 AM CDT Clinical Indication: 100 cc omni 350, ct dlp 917.19 mGy-cm - SOB with hypoxia, rule out PE. . COMPARISON: 11/14/2011. 09/17/2011. TECHNIQUE: Sequential trans-axial images were obtained thru the chest and upper abdomen after administration of iodinated contrast. Coronal and sagittal reconstructions were obtained. 3D post-processing reconstruction post IV contrast volume rendering images are submitted. FINDINGS: LUNG PARENCHYMA AND PLEURA: Extensive bilateral groundglass infiltrates. There are no pleural effusions. There is no pneumothorax. AIRWAY: The central airway is normal. MEDIASTINUM: Subcentimeter paratracheal lymph nodes. HEART: Extensive cardiomegaly. There is no pericardial effusion. VASCULAR STRUCTURES: The main, right and left pulmonary arteries are normal. The great vessels are normal. The thoracic aorta is free of aneurysm or dissection. The superior vena cava is normal.The pulmonary vasculature is normal. OSSEOUS STRUCTURES: There are no definite significant osseous abnormalities seen. VISUALIZED UPPER ABDOMEN: The visualized upper abdomen is within normal limits. IMPRESSION: 1. No pulmonary embolus. 2. Extensive bilateral groundglass infiltrates may be seen with atypical/viral pneumonia, pulmonary hemorrhage, early edema is considered less likely. 3. Cardiomegaly. SL: [id number] 01/06/2017 [facility] 2 views DX Study: 2 view chest compared to 10/09/2016 History: Cough Comments: The trachea is midline. The cardiomediastinal silhouette is normal in size. Mild bilateral interstitial prominence. Atypical pneumonia cannot be excluded. No pleural effusions or pneumothorax. Impression: Mild bilateral interstitial prominence. Atypical pneumonia cannot be excluded. No bronchopneumonia 01/06/2017 [facility] 1view DX Portable chest: The cardiac silhouette is enlarged. There is pulmonary venous congestion with mild right hilar edema, increasing slightly since 07/30/2016. There is no significant effusion. There is no other change. [id number] 10/09/2016 [facility] Chest 2 views DX EXAM: Chest radiographs HISTORY: Chest pain COMPARISON: 11/17/2011 TECHNIQUE: Frontal and lateral views of the chest FINDINGS: Stable cardiomegaly. Interstitial prominence bilaterally may reflect edema or pneumonia. No significant pleural effusion. SL: [id number] 07/30/2016 [facility] Consultation Notes No Data Provided for This Section Discharge Summaries No Data Provided for This Section History and Physicals No Data Provided for This Section Vital Signs Vital Sign Value Date Comments Source Systolic (mm Hg) 109 09/22/2018 [facility] Diastolic (mm Hg) 77 09/22/2018 [facility] Heart Rate 104 09/22/2018 [facility] Respitory Rate 16 09/22/2018 [facility] Temperature Oral (F) 98.6 F 09/22/2018 [facility] Systolic (mm Hg) 96 09/22/2018 [facility] Diastolic (mm Hg) 66 09/22/2018 [facility] Respitory Rate 16 09/22/2018 [facility] Heart Rate 102 09/22/2018 [facility] Temperature Oral (F) 97.9 F 09/22/2018 [facility] Systolic (mm Hg) 104 09/22/2018 [facility] Diastolic (mm Hg) 73 09/22/2018 [facility] Respitory Rate 16 09/22/2018 [facility] Temperature Oral (F) 97.9 F 09/22/2018 [facility] Heart Rate 94 09/22/2018 [facility] Height 167.64 cm 09/18/2018 [facility] BMI Calculated 54.67 09/18/2018 [facility] Weight 153.636 09/18/2018 [facility] Respitory Rate 18 08/26/2018 [facility] Heart Rate 96 08/26/2018 [facility] Systolic (mm Hg) 125 08/26/2018 [facility] Diastolic (mm Hg) 72 08/26/2018 [facility] Temperature Oral (F) 98.0 F 08/26/2018 [facility] Systolic (mm Hg) 125 08/26/2018 [facility] Diastolic (mm Hg) 72 08/26/2018 [facility] Respitory Rate 17 08/26/2018 [facility] Systolic (mm Hg) 104 08/26/2018 [facility] Diastolic (mm Hg) 86 08/26/2018 [facility] Respitory Rate 16 08/26/2018 [facility] Heart Rate 99 08/26/2018 [facility] Temperature Oral (F) 98.1 F 08/26/2018 [facility] Systolic (mm Hg) 98 08/18/2018 [facility] Diastolic (mm Hg) 72 08/18/2018 [facility] Systolic (mm Hg) 118 08/18/2018 [facility] Diastolic (mm Hg) 71 08/18/2018 [facility] Systolic (mm Hg) 110 08/18/2018 [facility] Diastolic (mm Hg) 74 08/18/2018 [facility] Temperature Oral (F) 98.1 F 08/18/2018 [facility] Respitory Rate 21 08/18/2018 [facility] Temperature Oral (F) 98.0 F 08/18/2018 [facility] Weight 153.636 08/18/2018 [facility] BMI Calculated 54.67 08/18/2018 [facility] Height 167.64 cm 08/18/2018 [facility] Respitory Rate 20 07/20/2018 [facility] Heart Rate 97 07/20/2018 [facility] Systolic (mm Hg) 92 07/20/2018 [facility] Diastolic (mm Hg) 65 07/20/2018 [facility] Temperature Oral (F) 98.0 F 07/20/2018 [facility] Respitory Rate 20 07/20/2018 [facility] Heart Rate 103 07/20/2018 [facility] Systolic (mm Hg) 110 07/20/2018 [facility] Diastolic (mm Hg) 70 07/20/2018 [facility] Weight 155.45 07/20/2018 [facility] BMI Calculated 53.68 07/20/2018 [facility] Temperature Oral (F) 98.1 F 07/20/2018 [facility] Height 170.18 cm 07/20/2018 [facility] Temperature Oral (F) 98.2 F 03/07/2018 [facility] Systolic (mm Hg) 123 03/07/2018 [facility] Diastolic (mm Hg) 80 03/07/2018 [facility] Respitory Rate 17 03/07/2018 [facility] Respitory Rate 22 03/07/2018 [facility] Systolic (mm Hg) 101 03/07/2018 [facility] Diastolic (mm Hg) 89 03/07/2018 [facility] Systolic (mm Hg) 124 03/07/2018 [facility] Diastolic (mm Hg) 91 03/07/2018 [facility] Heart Rate 107 03/07/2018 [facility] Respitory Rate 18 03/07/2018 [facility] Temperature Oral (F) 98.6 F 03/07/2018 [facility] Systolic (mm Hg) 99 01/28/2017 [facility] Diastolic (mm Hg) 72 01/28/2017 [facility] Heart Rate 104 01/28/2017 [facility] Heart Rate 99 01/28/2017 [facility] Temperature Oral (F) 98 F 01/28/2017 [facility] Systolic (mm Hg) 109 01/28/2017 [facility] Diastolic (mm Hg) 81 01/28/2017 [facility] Respitory Rate 12 01/28/2017 [facility] Heart Rate 96 01/28/2017 [facility] Temperature Oral (F) 97.9 F 01/28/2017 [facility] Respitory Rate 18 01/28/2017 [facility] Systolic (mm Hg) 128 01/28/2017 [facility] Diastolic (mm Hg) 86 01/28/2017 [facility] Respitory Rate 18 01/28/2017 [facility] Temperature Oral (F) 98 F 01/28/2017 [facility] Weight 155.864 01/27/2017 [facility] BMI Calculated 56.12 01/26/2017 [facility] Weight 157.727 01/26/2017 [facility] Height 167.64 cm 01/26/2017 [facility] Weight 111.364 01/26/2017 [facility] Height 167.64 cm 01/26/2017 [facility] BMI Calculated 39.63 01/26/2017 [facility] Systolic (mm Hg) 114 01/06/2017 [facility] Diastolic (mm Hg) 83 01/06/2017 [facility] Heart Rate 99 01/06/2017 [facility] Respitory Rate 18 01/06/2017 [facility] Temperature Oral (F) 98.1 F 01/06/2017 [facility] Heart Rate 88 01/06/2017 [facility] Respitory Rate 18 01/06/2017 [facility] Systolic (mm Hg) 111 01/06/2017 [facility] Diastolic (mm Hg) 93 01/06/2017 [facility] Systolic (mm Hg) 121 01/06/2017 [facility] Diastolic (mm Hg) 91 01/06/2017 [facility] Respitory Rate 18 01/06/2017 [facility] Heart Rate 97 01/06/2017 [facility] Temperature Oral (F) 99.0 F 01/06/2017 [facility] Height 167.64 cm 01/06/2017 [facility] BMI Calculated 39.63 01/06/2017 [facility] Weight 111.364 01/06/2017 [facility] Temperature Oral (F) 100.0 F 10/09/2016 [facility] Systolic (mm Hg) 127 10/09/2016 [facility] Diastolic (mm Hg) 88 10/09/2016 [facility] Heart Rate 106 10/09/2016 [facility] Respitory Rate 16 10/09/2016 [facility] Respitory Rate 19 10/09/2016 [facility] Weight 150 10/09/2016 [facility] BMI Calculated 51.79 10/09/2016 [facility] Temperature Oral (F) 100.5 F 10/09/2016 [facility] Heart Rate 114 10/09/2016 [facility] Respitory Rate 16 10/09/2016 [facility] Height 170.18 cm 10/09/2016 [facility] Systolic (mm Hg) 110 10/09/2016 [facility] Diastolic (mm Hg) 73 10/09/2016 [facility] Systolic (mm Hg) 136 07/30/2016 [facility] Diastolic (mm Hg) 62 07/30/2016 [facility] Respitory Rate 16 07/30/2016 [facility] Heart Rate 101 07/30/2016 [facility] Temperature Oral (F) 99.5 F 07/30/2016 [facility] Systolic (mm Hg) 118 07/30/2016 [facility] Diastolic (mm Hg) 73 07/30/2016 [facility] Respitory Rate 18 07/30/2016 [facility] Heart Rate 75 07/30/2016 [facility] Temperature Oral (F) 99.1 F 07/30/2016 [facility] Respitory Rate 20 07/30/2016 [facility] Height 167.64 cm 07/30/2016 [facility] Weight 154.545 07/30/2016 [facility] BMI Calculated 54.99 07/30/2016 [facility] Temperature Oral (F) 100.1 F 07/30/2016 [facility] Systolic (mm Hg) 121 07/30/2016 [facility] Diastolic (mm Hg) 72 07/30/2016 [facility] Heart Rate 102 07/30/2016 [facility] Encounters Location Location Details Encounter Type Encounter Number Reason For Visit Attending Provider ADM Date DC Date Status Source [facility] Emergency [id number] Chely Montoya 07/30/2016 07/30/2016 [facility] Emergency [id number] Dahlia Parvin 10/09/2016 10/09/2016 [facility] Emergency [id number] Conner Weeks 01/06/2017 01/06/2017 [facility] Inpatient [id number] Avila Venecia 01/26/2017 01/28/2017 [facility] Emergency [id number] Nitin Pacheco 03/07/2018 03/07/2018 [facility] Emergency [id number] Shayna Marie 07/20/2018 07/20/2018 [facility] Bedded Outpatient [id number] Ja Silveira 08/18/2018 08/18/2018 [facility] Emergency [id number] Carlos Preston 08/26/2018 08/26/2018 [facility] Inpatient [id number] Dave Torres Jr 09/18/2018 09/22/2018 [facility] Procedures Procedure Code Date Perfomer Comments Source Cardiac catheterization, left heart [id number] 08/18/2018 [facility] Assessment and Plan Assessment and Plan Date Source Extracted from:Title: [facility] Service Discharge Summary Author: Dave Madsen MD Date: 09/22/18 [facility] Service Discharge Summary PATIENT NAME:LINSEY NAVARRO III ATTENDING: DAVE TORRES JR, MD ADMISSION DATE: 09/18/2018 04:24 DISCHARGE DATE: 09/22/2018 15:25 DISCHARGE DIAGNOSIS: Cellulitis of groin (L03.314) Infected hematoma of groin Morbid obesity Contusion of abdominal wall, initial encounter (S30.1XXA) Non-ischemic cardiomyopathy CONSULTING PHYSICIANS/SERVICES: David Mart MD Office: Service: Cardiology Sandeep Samayoa MD Office: Service: Cardiology Rodney Long MD Office: Service: Infectious Disease Rocky Armenta MD Office: Service: Thoracic/Cardiac Surgery Harpreet Gómez MD Office: Service: Medicine Nicole Pink MD Office: Service: Cardiology Arias Weston MD Office: Service: Cardiology Deyvi Del Castillo MD Office: Service: Thoracic/Cardiac Surgery DISCHARGE CONDITION: Fair HISTORY OF PRESENT ILLNESS: Please see admission history and physical for presenting details HOSPITAL COURSE: The patient presented to the hospital due to groin pain at the site of a recent catheter puncture site from a coronary catheterization. He was noted to have a fluid collection thought to be a hematoma. He was seen by vascular surgery who debrided the wound which was determined to be infected. The patient was started on intravenous antibiotics, and a wound vac was placed on the wound. Infectious diseases, wound care and cardiology were all involved in his care and made recommendations. Ultimately, the wound cultures were positive for Staphylococcus and he was discharged on keflex per infectious diseases recommendations. I saw and examined the patient on day of discharge. The patient was discharged in fair condition, with appropriate followup and appropriate medications. The patient was not started on an SUNG-i or ARB due to low blood pressure. This had been held as an outpatient by his private general doc. DISCHARGE INSTRUCTIONS: Please notify your physician if any of the following occur: Bleeding, Fever, Signs of infection DISCHARGE DIET: Home Diet: Diet Heart Healthy DISCHARGE MEDICATIONS: PLEASE SEE R FOR DETAILS PERTAINING TO DISCHARGE MEDICATIONS DISCHARGE FOLLOWUP: Follow Up With Deyvi Del Castillo MD, Call for appointment, within: 4 Weeks, reason: Follow Up On Treatment David Mart MD, Call for appointment, within: 2 Weeks, reason: Follow Up On Treatment Harpreet Gómez MD, Call for appointment, within: 1 Week, reason: Follow Up On Treatment Rodney Long MD, Call for appointment, within: 2 Weeks, reason: Follow Up On Treatment A total of 34 minutes was spent planning discharge which included bedside counseling. Extracted from:Title: Clinical Document Author: Harpreet Gómez MD Date: 09/22/18 Wound Care Progress Note Harpreet Gómez MD, PA Subjective: Patient seen, examined and events noted. Objective: Vitals and Temp: Vitals Tmp(F) Pulse BP RR SpO2 FIO2 09/22 12:21 98.6 104 109/77 16 96 --- 09/22 08:14 97.9 102 96/66 16 95 --- 09/22 03:50 97.9 94 104/73 16 93 --- 09/21 23:47 98.3 92 101/71 16 93 --- 09/21 20:43 ---- 103 111/74 -- --- --- 24 Hr Tmax: 98.6F (37.00c) at 09/22 12:21 Vital Signs are the last 5 in the past 48 hours. (no lab data in past 24 hours) Diagnostics: PHYSICAL EXAMINATION Chest: Clear, no rhonchi Heart: S1, S2, regular rhythm. FUELS ENGINEER: No focal sign Wounds: Location: right groin wound Size: Base wound: * (X) garcia as present (x_) Granulation (_) Yellow (_) Slough (_) Black eschar (_) Odor (_) Maceration Drainage (_) None (_) Scant (x_) Small (_) Moderate (_) Heavy Appearance of drainage: (x_) Serous (_) Serosanguinous (_) Green (_) Yellow (_) Seropurulent (_) Purulent (_) Bloody No qualifying data available ASSESSMENT AND PLAN: right groin wound wound foam remove d d/c planning wound vac chnage to day then M W F prerssure 125 mmhg f/u one wk Continue current treatment. Follow up for monitoring infection and wound progress. Extracted from:Title: General Admission H&P * Author: Linda Ritchie MD Date: 09/18/18 Impression and Plan 38 yo male with hx of systolic CHF (EF < 20%) who presents for right groin pain and swelling following a left heart cath in Jul 2018. Patient admitted for right groin hematoma and abscess. # Right groin hematoma/abscess # Recent left heart cath - cardiology and vascular surgery consulted - wound cx pending - vanc/cefepime - prn tramadol/morphine # JOSE - renal U/S, UA, lytes pending - hold diuretics - gentle IVFs # Chronic systolic CHF - hold diuretics - c/w coreg - not on ACEi DVT ppx: SCDs only due to hematoma Dispo: 1 midnight Linda Ritchie MD P Hospitalist 09/22/2018 [facility] Extracted from:Title: Clinical Document Author: Channing Ibanez MD Date: 01/28/17 [facility] Discharge Note [facility] Channing Ibanez MD SUBJECTIVE: Patient seen and examined, events reviewed Feeling much better today and less short of breath OBJECTIVE: Vitals and Temp: Vitals Tmp(F) Pulse BP RR SpO2 FIO2 01/28 15:58 ---- 104 99/72 -- 100 --- 01/28 12:09 98 99 109/81 -- 94 --- 01/28 07:56 ---- --- ----- 12 99 --- 01/28 07:53 97.9 96 128/86 18 98 --- 01/28 03:39 98 92 119/80 18 98 --- 24 Hr Tmax: 98.3F (36.83c) at 01/27 19:42 Vital Signs are the last 5 in the past 48 hours. Input/Output Record In Out Bal 01/28 24hr Tot 384 0 384 01/27 24hr Tot 2096 0 2096 Labs (Last four charted values) WBC 6.0 (JAN 27) 5.9 (JAN 26) 5.4 (JAN 26) Hgb L 12.3 (JAN 27) L 13.0 (JAN 26) L 12.8 (JAN 26) Hct L 37.5 (JAN 27) L 40.1 (JAN 26) L 39.3 (JAN 26) Plt 278 (JAN 27) 304 (JAN 26) 313 (JAN 26) Na 140 (JAN 28) 141 (JAN 27) 142 (JAN 26) 141 (JAN 26) K 3.8 (JAN 28) 3.5 (JAN 27) 4.0 (JAN 26) 3.8 (JAN 26) CO2 27 (JAN 28) 27 (JAN 27) 29 (JAN 26) 27 (JAN 26) Cl 103 (JAN 28) 105 (JAN 27) 107 (JAN 26) 107 (JAN 26) Cr 0.82 (JAN 28) 0.92 (JAN 27) 0.82 (JAN 26) 0.92 (JAN 26) BUN 17 (JAN 28) 15 (JAN 27) 15 (JAN 26) 15 (JAN 26) Glucose Random H 127 (JAN 28) H 113 (JAN 27) H 100 (JAN 26) H 110 (JAN 26) Mg 2.3 (JAN 28) 2.2 (JAN 26) 2.0 (JAN 26) Ca 8.8 (JAN 28) L 8.4 (JAN 27) 8.6 (JAN 26) L 8.0 (JAN 26) PT 14.4 (JAN 26) INR 1.10 (JAN 26) PTT 31.7 (JAN 26) Troponin <0.02 (JAN 26) <0.02 (JAN 26) 0.02 (JAN 26) CK MB <0.5 (JAN 26) <0.5 (JAN 26) 0.9 (JAN 26) Total CK H 363 (JAN 26) H 433 (JAN 26) H 485 (JAN 26) MEDICATIONS Scheduled Meds (7):aspirin, carvedilol, enoxaparin, furosemide (Lasix), lisinopril, potassium chloride, sodium chloride (Saline Flush 0.9%) Unscheduled Meds: None PRN Meds (3):albuterol-ipratropium, guaiFENesin (Robitussin), sodium chloride (Saline Flush 0.9%) One Time Meds: None Continuous Infusions: None ASSESSMENT and EXAM: GENERAL: Sitting up in bed in no distress at this time. HEENT: PERRL. NECK: No JVD. CARDIOVASCULAR: Regular rate and rhythm, S1, S2 positive. LUNGS: Clear to auscultation bilateral. GASTROINTESTINAL: Soft, nontender, nondistended, positive bowel sounds. EXTREMITIES: No clubbing, cyanosis or edema. NEUROLOGICAL: No deficits noted. SKIN: no rashes noted. DIAGNOSES and PROBLEMS: Acute systolic CHF exacerbation with an EF of 25% Hypotension History of hypertension Shortness of breath Bronchitis PLAN and TREATMENT: HOSPITAL COURSE: Mr. Diaz originally presented [...] The patient was started on an SUNG inh ibitor as well as adjustments to his beta-bonilla. He was placed on an aspirin a day as well. He will be discharged home today in improving condition with close follow-up as an outpatient. He will need a sleep study as well with pulmonary and was given a physician to follow-up with. He will also follow-up with his general doc now. DISCHARGE NOTE: Condition: improved Activity: as tolerated Diet: cardiac Follow up: dr. pablo in 1-2 weeks, dr. samuel for sleep study Medications: see d/c mars Special instructions: the patient was instructed to check his weights daily, and if his weight increased by more than 5 pounds to call his general doc, or if he were to become short of breath, he was instructed to go to the emergency department immediately. DC time: 35 min Extracted from:Title: Clinical Document Author: Vickey Pablo MD Date: 01/27/17 Cardiology Progress Note Vickey Pablo MD [facility] Subjective: Events noted, chart reviewed. Telemetry: sinus rhythm Objective: Vitals and Temp: Vitals Tmp(F) Pulse BP RR SpO2 FIO2 01/27 20:36 ---- --- ----- 18 96 21% 01/27 20:19 ---- 78 135/93 -- --- --- 01/27 19:42 98.3 102 109/73 18 95 --- 01/27 15:16 97.8 107 109/68 18 95 --- 01/27 11:29 98.0 109 128/93 18 --- --- 24 Hr Tmax: 98.3F (36.83c) at 01/27 19:42 Vital Signs are the last 5 in the past 48 hours. Medications: aspirin 81 mg ECT 81 mg 1 tab, PO, Daily carvedilol 3.125 mg TAB 3.125 mg 1 tab, PO, Q12H enoxaparin 40 mg/0.4 ml INJ 40 mg 0.4 mL, SUB-Q, [id number] furosemide 10mg/ml INJ 4ml VL 40 mg [...] Imaging Studies: 24hr Labs 01/27 0424 Glucose Lvl 113 H BUN 15 Creatinine Lvl 0.92 Sodium Lvl 141 Potassium Lvl 3.5 Chloride Lvl 105 CO2 27 AGAP 12.5 Calcium Lvl 8.4 L eGFR 121 WBC 6.0 RBC 4.48 L Hgb 12.3 L Hct 37.5 L MCV 83.7 MCH 27.5 MCHC 32.9 RDW 15.3 H Platelet 278 MPV 8.6 Segs 64.5 Monocytes 7.6 Lymphocytes 26.0 Eosinophils 1.3 Basophils 0.6 Segs-Bands # 3.9 Lymphocytes # 1.6 Monocytes # 0.5 Eosinophils # 0.1 01/27 2028 Total CK 363 H Troponin-I <0.02 CK MB <0.5 Assessment: CHF with severe systolic dysfunction Hypertension Bronchitis Plan: Continue diuresis with beta-bonilla and afterload reduction with SUNG inhibitors/ARB Patient is clinically much improved Request records of previous cardiac/medical workup Extracted from:Title: Cardiology Consultation Author: Vickey Pablo MD Date: 01/27/17 Impression and Plan CHF with severe systolic dysfunction History of hypertension Bronchitis Chronic back pain Diuresis with afterload reduction Optimize blood pressure control Add beta-bonilla as tolerated Request previous cardiac or other medical records Further recommendations as per his clinical course Extracted from:Title: Clinical Document Author: Channing Ibanez MD Date: 01/26/[address] [facility] H&P [facility] Channing Ibanez MD SUBJECTIVE: Patient seen and examined, events reviewed regarding admission History of present illness: Mr. Navarro is a very pleasant 37-year-old -Italian male who presents here through the emergency [...] with his girlfriend. 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 Family history: Diabetes Hypertension Coronary artery disease Review of systems: Please see HPI, a full 14 point review can be found there. OBJECTIVE: Vitals and Temp: Vitals Tmp(F) Pulse BP RR SpO2 FIO2 01/26 11:39 97.7 86 105/75 19 94 --- 01/26 10:59 97.8 100 125/72 18 96 --- 01/26 10:12 ---- 103 103/70 18 95 --- 01/26 08:20 ---- 101 124/77 20 96 --- 01/26 07:38 97.6 97 116/92 20 97 --- 24 Hr Tmax: 97.8F (36.56c) at 01/26 10:59 Vital Signs are the last 5 in the past 48 hours. Input/Output Record In Out Bal 24hr Tot 0 0 0 24hr Tot 0 0 0 Labs (Last four charted values) WBC 5.4 (JAN 26) Hgb L 12.8 (JAN 26) Hct L 39.3 (JAN 26) Plt 313 (JAN 26) Na 141 (JAN 26) K 3.8 (JAN 26) CO2 27 (JAN 26) Cl 107 (JAN 26) Cr 0.92 (JAN 26) BUN 15 (JAN 26) Glucose Random H 110 (JAN 26) Mg 2.0 (JAN 26) Ca L 8.0 (JAN 26) PT 14.4 (JAN 26) INR 1.10 (JAN 26) PTT 31.7 (JAN 26) Troponin 0.02 (JAN 26) CK MB 0.9 (JAN 26) Total CK H 485 (JAN 26) MEDICATIONS Scheduled Meds (4):aspirin, enoxaparin, furosemide (Lasix), sodium chloride (Saline Flush 0.9%) Unscheduled Meds: None PRN Meds (2):albuterol-ipratropium, sodium chloride (Saline Flush 0.9%) One Time Meds (2):(Discontinued) furosemide (Lasix), (Completed) furosemide (Lasix) Continuous Infusions: None ASSESSMENT and EXAM: GENERAL: In no apparent distress at [...] deficits noted. SKIN: no rashes noted. DIAGNOSES and PROBLEMS: Acute systolic CHF exacerbation with an EF of 25% Hypotension History of hypertension Shortness of breath Bronchitis PLAN and TREATMENT: We will admit the patient to the hospital Consult cardiology and obtain an echocardiogram Place on Lasix IV We will add aspirin daily Hold beta-bonilla and SUNG inhibitor secondary to hypotension at this time Monitor strict I's and O's Daily weights Nebulizer for bronchitis Monitor blood pressure closely on Lasix Prognosis guarded Further recommendations will be based on this patient's clinical course 01/28/2017 [facility] Plan of Care No Data Provided for This Section Social History Social History Date Source Social History TypeResponse Substance Abuse Use: None. Alcohol Current, Type Liquor. Frequency: 1-2 times per week. Smoking Status Never smoker; Exposure to Tobacco Smoke None; Cigarette Smoking Last 365 Days No; Reg Smoking Cessation Counseling No entered on: 09/18/18 06/06/2018 [facility] Social History TypeResponse Substance Abuse Use: None. Alcohol Current, Type Liquor. Frequency: 1-2 times per week. Smoking Status Never smoker; Exposure to Tobacco Smoke None; Cigarette Smoking Last 365 Days No; Reg Smoking Cessation Counseling No entered on: 06/06/18 06/06/2018 [facility] Family History No Data Provided for This Section Advance Directives No Data Provided for This Section Functional Status No Data Provided for This Section
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
--- OUTSIDE RECORDS SUMMARY | 2019-02-03 19:56 | XMS REPORT ---
Author Author [facility] Address Unknown Phone Unavailable Care Team Providers Care House Manager Name Role Phone Unavailable Unavailable Problems This patient has no known problems. Allergies, Adverse Reactions, Alerts This patient has no known allergies or adverse reactions. Medications This patient has no known medications. Encounters Start Date/Time End Date/Time Encounter Type Admission Type Attending [facility] Facility Care Department Encounter ID 2018-09-19 11:23:00 Inpatient E [facility] [id number] 2018-12-25 15:24:00 2018-12-25 15:24:00 Emergency E [facility] [id number] 2018-03-16 00:42:00 2018-03-16 00:42:00 Outpatient E [facility] [id number] 2018-03-07 09:54:00 2018-03-07 09:54:00 Emergency E [facility] [id number]
--- OUTSIDE RECORDS SUMMARY | 2019-02-03 19:56 | XMS REPORT | Summary of Care ---
Author Author [facility] Organization [facility] Address Unknown Phone Unavailable Encounter TRACIE Dorsey(MARIA DE JESUS) [id number] Date(s): 07/30/16 - 07/30/16 [facility] [address] [place] [address]- Discharge Diagnosis: Acute bronchitis Discharge Disposition: Home or Self Care Attending Physician: Chely Montoya DO Vital Signs 1 2 3 Most recent to oldest [Reference Range]: 167.64 cm (07/30/16 1:45 AM) Height 99.5 DegF *HI* (07/30/16 7:33 AM) 99.1 DegF (07/30/16 6:10 AM) 100.1 DegF *HI* (07/30/16 1:45 AM) Temperature Oral [96.4-99.1 DegF] 136/62 mmHg (07/30/16 7:33 AM) 118/73 mmHg (07/30/16 6:10 AM) 121/72 mmHg (07/30/16 1:45 AM) Blood Pressure [90-140/60-90 mmHg] 16 BRMIN (07/30/16 7:33 AM) 18 BRMIN (07/30/16 6:10 AM) 20 BRMIN (07/30/16 2:22 AM) Respiratory Rate [14-20 BRMIN] 101 bpm *HI* (07/30/16 7:33 AM) 75 bpm (07/30/16 6:10 AM) 102 bpm *HI* (07/30/16 1:45 AM) Peripheral Pulse Rate [60-100 bpm] 154.545 kg (07/30/16 1:45 AM) Weight 54.99 m2 (07/30/16 1:45 AM) Body Mass Index Problem List Condition [...] 90 mcg/inh inhalation aerosol 2 puff, INHALATION, Q4H, PRN for wheezing, # 9 gm, 0 Refill(s) Start Date: 07/30/16 Status: Ordered dexamethasone 10 mg, Route: IM, ONCE, Dosing Weight 154.545, kg, Priority: STAT, Start date: 0 07/30/16 6:51:00 CANDLE MAKER, 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/16 6:51:00 CANDLE MAKER Start Date: 07/30/16 Stop Date: 07/30/16 Status: Completed DuoNeb inhalation solution 6 mL, Route: NEB, Dosing Weight 154.545, kg, ONCE, Start date: 07/30/16 2:18:00 CANDLE MAKER, 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/16 2:18:00 CANDLE MAKER Start Date: 07/30/16 Stop Date: 07/30/16 Status: Completed DuoNeb inhalation solution 3 ml, Route: NEB, Drug Form: SOLN, Dosing Weight 154.545, kg, ONCE, PRN Respirat ory Protocol, Start date: 07/30/16 6:52:00 CANDLE MAKER Start Date: 07/30/16 Stop Date: 07/30/16 Status: Completed predniSONE 20 mg oral tablet 60 mg=3 tab, PO, Daily, Take 3 tablets for 60 mg dose, X 2 day, # 6 tab, 0 Refil l(s) Start Date: 07/30/16 Stop Date: 08/01/16 Status: Completed Tylenol 650 mg, Route: PO, Drug form: TAB, ONCE, Dosing Weight 154.545, kg, Priority: ST AT, Start date: 07/30/16 1:50:00 CANDLE MAKER, 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/16 1:50:00 CANDLE MAKER Start Date: 07/30/16 Stop Date: 07/30/16 Status: Completed Tylenol with Codeine 120 mg-12 mg/5 mL oral liquid 15 ml, PO, Q6H, PRN Cough, X 2 day, # 120 mL, 0 Refill(s) Start Date: 07/30/16 Stop Date: 08/01/16 Status: Completed Zithromax Z-Ricardo 250 mg oral tablet 250 mg, PO, Daily, Take 2 tablets by mouth the first day then 1 tablet by mouth days 2-5, X 5 day, # 6 tab, 0 Refill(s) Start Date: 07/30/16 Stop Date: 08/04/16 Status: Ordered Results No data available for [...]
--- OUTSIDE RECORDS SUMMARY | 2019-02-03 19:56 | XMS REPORT ---
Author Author Marguerite eLvy [facility] [employer] Address Unknown Phone Unavailable Care Team Providers Care Sheriff Sergeant Name Role Phone Marguerite Levy CP Unavailable Allergies, Adverse Reactions, Alerts Substance Reaction Event Type N.K.D.A. Info Not Available Non Drug Allergy Problems Problem Type Condition Code Onset Dates Condition Status Problem Other specified counseling Z71.89 Active Problem Other fatigue R53.83 Active Problem Encounter for screening for human immunodeficiency virus [HIV] Z11.4 Active Problem Hyperlipidemia E78.5 Active Assessment Hyperlipidemia E78.5 Active Problem Morbid obesity due to excess calories E66.01 Active Assessment Congestive heart failure I50.9 Active Assessment Morbid obesity due to excess calories E66.01 Active Problem Gout M10.9 Active Problem Encounter for screening for diabetes mellitus Z13.1 Active Problem Encounter for screening for other suspected endocrine disorder Z13.29 Active Problem Encounter for screening for cardiovascular disorders Z13.6 Active Problem Encounter for screening for lipoid disorders Z13.220 Active Problem Erectile dysfunction N52.9 Active Problem Left knee pain M25.562 Active Assessment Gout M10.9 Active Problem Hypertension I10 Active Problem Encounter for screening for osteoporosis Z13.820 Active Problem Encounter for screening for malignant neoplasm of prostate Z12.5 Active Problem Weight gain R63.5 Active Problem Encounter for other screening for malignant neoplasm of breast Z12.39 Active Problem Congestive heart failure I50.9 Active Problem Encounter for screening for malignant neoplasm of colon Z12.11 Active Medications Medication Code System Code Instructions Start Date End Date Status Dosage Diclofenac Sodium [facility] [place]NOTE 2] [address]-15 3 % Transdermal Twice a day December 28, 2018 Active 1 application to affected area Metolazone [facility] [place]NOTE 2] [address]-99 2.5 MG Orally once a week every Thursday Active 1 tablet Potassium NDC 0 Oral Active 1 tab Phentermine HCl [facility] [place]NOTE 2] [address]-35 30 MG Orally Once a day January 04, 2019 Active 1 capsule Furosemide [facility] [place]NOTE 2] [address]-76 80 MG Orally twice a day Active 1 tablet Metoprolol Succinate ER [facility] [place]NOTE 2] [address]-64 25 MG Orally twice a day Active 1 tablet Spironolactone [facility] [place][NOTE 2] [address]-30 25 MG Orally Once a day Active 1 tablet Results No Known Results Summary Purpose eClinicalWorks Submission
--- OUTSIDE RECORDS SUMMARY | 2019-02-03 19:56 | XMS REPORT ---
Author Author Marguerite Levy [facility] e[employer] Address Unknown Phone Unavailable Care Team Providers Care Litigation Coordinator Name Role Phone Marguerite Levy CP Unavailable Allergies, Adverse Reactions, Alerts Substance Reaction Event Type N.K.D.A. Info Not Available Non Drug Allergy Problems Problem Type Condition Code Onset Dates Condition Status Assessment Erectile dysfunction N52.9 Active Assessment Hypertension I10 Active Assessment Left knee pain M25.562 Active Assessment Weight gain R63.5 Active Assessment Congestive heart failure I50.9 Active Assessment Encounter for screening for osteoporosis Z13.820 Active Assessment Encounter for screening for malignant neoplasm of prostate Z12.5 Active Assessment Encounter for other screening for malignant neoplasm of breast Z12.39 Active Problem Congestive heart failure I50.9 Active Problem Encounter for screening for osteoporosis Z13.820 Active Assessment Encounter for screening for malignant neoplasm of colon Z12.11 Active Problem Encounter for screening for malignant neoplasm of prostate Z12.5 Active Problem Encounter for screening for malignant neoplasm of colon Z12.11 Active Problem Encounter for other screening for malignant neoplasm of breast Z12.39 Active Problem Encounter for screening for lipoid disorders Z13.220 Active Problem Encounter for screening for diabetes mellitus Z13.1 Active Assessment Other fatigue R53.83 Active Assessment Encounter for screening for human immunodeficiency virus [HIV] Z11.4 Active Problem Encounter for screening for cardiovascular disorders Z13.6 Active Assessment Other specified counseling Z71.89 Active Problem Encounter for screening for human immunodeficiency virus [HIV] Z11.4 Active Problem Other specified counseling Z71.89 Active Problem Encounter for screening for other suspected endocrine disorder Z13.29 Active Problem Other fatigue R53.83 Active Assessment Encounter for screening for lipoid disorders Z13.220 Active Assessment Encounter for screening for cardiovascular disorders Z13.6 Active Assessment Encounter for screening for other suspected endocrine disorder Z13.29 Active Assessment Encounter for screening for diabetes mellitus Z13.1 Active Problem Left knee pain M25.562 Active Problem Weight gain R63.5 Active Problem Hypertension I10 Active Problem Erectile dysfunction N52.9 Active Medications Medication Code System Code Instructions Start Date End Date Status Dosage Metoprolol Succinate ER [facility] [address]-42 25 MG Orally twice a day Active 1 tablet Metolazone [facility] [address]-40 2.5 MG Orally once a week every Thursday Active 1 tablet Potassium ND 0 Oral Active 1 tab Spironolactone [facility] [address]-20 25 MG Orally Once a day Active 1 tablet Furosemide [facility] [address]-48 80 MG Orally twice a day Active 1 tablet Diclofenac Sodium [facility] [address]-70 3 % Transdermal Twice a day December 28, 2018 Active 1 application to affected area Results No Known Results Summary Purpose eClinicalWorks Submission
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
--- OUTSIDE RECORDS SUMMARY | 2019-02-03 19:56 | XMS REPORT ---
Author Author Veda Paige [employer] Address Unknown Phone Unavailable Care Team Providers Care Intensive Care Nurse Name Role Phone Veda Paige Unavailable Allergies, Adverse Reactions, Alerts Substance Reaction Event Type N.K.D.A. Info Not Available Non Drug Allergy Problems Problem Type Condition Code Onset Dates Condition Status Problem Encounter for screening for human immunodeficiency virus [HIV] Z11.4 Active Problem Encounter for screening for other suspected endocrine disorder Z13.29 Active Problem Other fatigue R53.83 Active Problem Gout M10.9 Active Assessment Encounter to discuss test results Z71.2 Active Problem Hyperlipidemia E78.5 Active Assessment Acute gout M10.9 Active Assessment Low vitamin D level R79.89 Active Problem Acute gout M10.9 Active Problem Encounter for screening for lipoid disorders Z13.220 Active Problem Encounter for screening for diabetes mellitus Z13.1 Active Problem Morbid obesity due to excess calories E66.01 Active Problem Encounter for screening for cardiovascular disorders Z13.6 Active Problem Left knee pain M25.562 Active Problem Weight gain R63.5 Active Problem Hypertension I10 Active Problem Erectile dysfunction N52.9 Active Problem Encounter for screening for malignant neoplasm of prostate Z12.5 Active Problem Encounter for other screening for malignant neoplasm of breast Z12.39 Active Problem Congestive heart failure I50.9 Active Problem Encounter for screening for malignant neoplasm of colon Z12.11 Active Problem Encounter for screening for osteoporosis Z13.820 Active Problem Other specified counseling Z71.89 Active Medications Medication Code System Code Instructions Start Date End Date Status Dosage Spironolactone [facility] [address]-27 25 MG Orally Once a day Active 1 tablet Diclofenac Sodium [facility] [place] [address]-38 3 % Transdermal Twice a day December 28, 2018 Active 1 application to affected area Metoprolol Succinate ER [facility] [address]-08 25 MG Orally twice a day Active 1 tablet Potassium NDC 0 Oral Active [address] [facility] [place] [address]-26 50 MG Orally Twice a day January 17, 2019 Active 1 capsule with food Phentermine HCl [facility] [place] [address]-75 30 MG Orally Once a day January 04, 2019 Active [address] [facility] [place] [address]-45 16629 UNIT Orally once a week January 17, 2019 Active [address] [facility] [place] [address]-38 2.5 MG Orally once a week every Thursday Active [address] [facility] [place] [address]-88 80 MG Orally twice a day Active 1 tablet Results No Known Results Summary Purpose eClinicalWorks Submission
--- OUTSIDE RECORDS SUMMARY | 2019-02-03 19:56 | XMS REPORT | Summary of Care ---
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 Mart MDOffice: Service: Cardiology Sandeep Samayoa MDOffice: Service: Cardiology Rodney Long MDOffice: Service: Infectious Disease Rocky Armenta MDOffice: Service: Thoracic/Cardiac Surgery Harpreet Gómez MDOffice: service: Medicine Nicole Pink MDOffice: Service: Cardiology Arias Weston MDOffice: Service: Cardiology Deyvi Del Castillo MDOffice: Service: Thoracic/Cardiac Surgery DISCHARGE CONDITION: Fair HISTORY [...] held as an outpatient by his private grassland conservationist. DISCHARGE INSTRUCTIONS: Please notify your physician if any of the following occur: Bleeding, Fever, Signs of infection DISCHARGE DIET: Home Diet: Diet Heart Healthy DISCHARGE MEDICATIONS: PLEASE SEE HMR FOR DETAILS PERTAINING TO DISCHARGE MEDICATIONS DISCHARGE [...] planning discharge which included bedside counseling. Extracted from: Title: Clinical Document Author: Harpreet Gómez MD Date: 09/22/18 Wound Care Progress Note Harpreet Gómez MD, PA Subjective: Patient seen, examined and events noted. Objective: Vitals and Temp: VitalsTmp(F)[id number] 09/22 12:[id number]--- 09/22 08:[id number]--- 09/22 03:[id number]/[id number]--- 09/21 23:[id number]--- 09/21 20:43----[id number]-------- 24 Hr Tmax: 98.6F (37.00c) at 09/22 12:21Vital Signs are the last 5 in the past 48 hours. (no lab data in past 24 hours) Diagnostics: PHYSICAL EXAMINATION Chest: Clear, no rhonchi Heart: S1, S2, regular rhythm. M[employer]IM[employer] DEVELOPER: No focal sign Wounds: Location: right groin [...] for monitoring infection and wound progress. Extracted from: Title: General Admission H&P * Author: Linda Ritchie [...] hematoma Dispo: 1 midnight Linda Ritchie MD [facility] Hospitalist
[2019-02-03] MEDS ORDERED: CARVEDILOL12.5 MG PO (20:21)
[2019-02-03] MEDS ORDERED: FUROSEMIDE40 MG PO (20:21)
[2019-02-03] MEDS ORDERED: [UNRECOGNIZED DRUG - OTHER] (20:21)
[2019-02-03] MEDS ORDERED: SPIRONOLACTONE25 MG PO (20:21)
[2019-02-03] MEDS ORDERED: [UNRECOGNIZED DRUG - OTHER] (20:21)
[2019-02-03] MEDS ORDERED: KETOROLAC TROMETHAMINE 60 MG/2 ML VIAL ONE (20:54)
[2019-02-03] MEDS ORDERED: KETOROLAC TROMETHAMINE 60 MG/2 ML VIAL IM ONE (21:00)
--- NOTE | 2019-02-03 21:30 | Diagnostic Imaging Report ---
RIGHT FOOT - 2 Image(s) HISTORY: Pain, no injury COMPARISON: None available. FINDINGS: Bones: No acute displaced fracture. No aggressive osseous lesion. Joints: Minimal degenerative changes of the first metatarsophalangeal joint. A few ossific densities dorsal to the talar head and neck junction measuring up to 3 mm. Soft tissues: The soft tissues appear unremarkable. IMPRESSION: 1. No acute radiographic abnormality. 2. 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 3. Probable small intra-articular ossified bodies of the tibiotalar joint. Signed by: Dr. Isidro Dwyer D.O., M.M.M. on 02/03/2019 9:27 PM
[2019-02-03 21:33] VITALS: BP 105/75
== END 2019-02-03 21:48 | disposition home or self-care (01) ==
LOC: FSED 19:51
DX: M79.671 Pain in right foot (principal); M77.9 Enthesopathy, unspecified; M10.071 Idiopathic gout, right ankle and foot; R26.2 Difficulty in walking, not elsewhere classified
CPT/HCPCS: 96372; 99283; J1885

== ENCOUNTER 2019-03-12 15:49 | Observation (INO) | payer OTHER ==
[~2019-03-12] VITALS: Ht 170.2 cm; Wt 143.3 kg
[~2019-03-12 15:49] MED LIST: CARVEDILOL12.5 MG PO; FUROSEMIDE40 MG PO; SPIRONOLACTONE25 MG PO; [UNRECOGNIZED DRUG - OTHER]; [UNRECOGNIZED DRUG - OTHER]
--- OUTSIDE RECORDS SUMMARY | 2019-03-12 15:53 | XMS REPORT | Continuity of Care Document ---
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 07/30/2016 [facility] 200 ACTUAT Albuterol 0.09 MG/ACTUAT Metered Dose Inhaler 2 puff, INHALATION, Q4H, PRN for wheezing, # 9 gm, 0 Refill(s) Active 07/30/2016 [facility] {6 (Azithromycin 250 MG Oral Tablet [Zithromax]) } Pack [Z-PAKS] 250 mg, PO, Daily, Take 2 tablets by mouth the first day then 1 tablet by mouth days 2-5, X 5 day, # 6 tab, 0 Refill(s) Active 07/30/2016 [facility] Albuterol 0.833 MG/ML / Ipratropium Blythe 0.167 MG/ML Inhalant Solution [DuoNeb] 6 mL, Route: NEB, Dosing Weight 154.545, kg, ONCE, Start date: 07/30/16 2:18:00 RECEIVER DISPATCHER, 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/16 2:18:00 RECEIVER DISPATCHER Inactive 07/30/2016 [facility] Tylenol 650 mg, Route: PO, Drug form: TAB, ONCE, Dosing Weight 154.545, kg, Priority: STAT, Start date: 07/30/16 1:50:00 RECEIVER DISPATCHER, 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/16 1:50:00 RECEIVER DISPATCHER Inactive 07/30/2016 [facility] Allergies, Adverse Reactions, Alerts No Known Medication Allergies Immunizations No Data Provided for This Section Results Order Name Results Value Reference Range Date Interpretation Comments Source ELECTROLYTES AGAP 13.4 10.0 - 20.0 09/21/2018 [facility] ELECTROLYTES eGFR 125 09/21/2018 Result Comment: The [...] should be multiplied by the estimated BMI. [facility] ELECTROLYTES Glucose Lvl 115 70 - 99 09/21/2018 [facility] ELECTROLYTES BUN 14 7 - 22 09/21/2018 [facility] ELECTROLYTES Potassium Lvl 4.4 3.5 - 5.1 09/21/2018 [facility] ELECTROLYTES CO2 24 24 - 32 09/21/2018 [facility] ELECTROLYTES Chloride Lvl 105 95 - 109 09/21/2018 [facility] ELECTROLYTES Calcium Lvl 8.9 8.5 - 10.5 09/21/2018 [facility] ELECTROLYTES Sodium Lvl 138 135 - 145 09/21/2018 [facility] ELECTROLYTES Creatinine Lvl 0.87 0.50 - 1.40 09/21/2018 [facility] HEMATOLOGY Basophils # 0.1 0.0 - 0.2 09/21/2018 [facility] HEMATOLOGY Eosinophils # 0.2 0.0 - 0.5 09/21/2018 [facility] HEMATOLOGY Monocytes # 0.5 0.0 - 0.8 09/21/2018 [facility] HEMATOLOGY Lymphocytes # 1.3 1.0 - 5.5 09/21/2018 [facility] HEMATOLOGY Neutrophils # 4.3 1.5 - 8.1 09/21/2018 [facility] HEMATOLOGY Basophils 0.8 0.0 - 1.0 09/21/2018 [facility] HEMATOLOGY Eosinophils 2.6 0.0 - 4.0 09/21/2018 [facility] HEMATOLOGY Monocytes 8.5 2.0 - 12.0 09/21/2018 [facility] HEMATOLOGY Lymphocytes 20.9 20.0 - 40.0 09/21/2018 [facility] HEMATOLOGY Segs 67.2 45.0 - 75.0 09/21/2018 [facility] HEMATOLOGY Hct 32.2 42.0 - 54.0 09/21/2018 [facility] HEMATOLOGY Hgb 10.5 14.0 - 18.0 09/21/2018 [facility] HEMATOLOGY RBC 3.86 4.70 - 6.10 09/21/2018 [facility] HEMATOLOGY MCHC 32.4 32.0 - 36.0 09/21/2018 [facility] HEMATOLOGY MCH 27.1 27.0 - 31.0 09/21/2018 [facility] HEMATOLOGY MCV 83.6 80.0 - 94.0 09/21/2018 [facility] HEMATOLOGY MPV 8.2 7.4 - 10.4 09/21/2018 [facility] HEMATOLOGY Platelet 277 133 - 450 09/21/2018 [facility] HEMATOLOGY RDW 14.2 11.5 - 14.5 09/21/2018 [facility] HEMATOLOGY WBC 6.4 3.7 - 10.4 09/21/2018 [facility] IMMUNOLOGY Prealbumin 13.4 18.0 - 45.0 09/21/2018 [facility] TOXICOLOGY Vanco Tr TND 202909/20/2018 [facility] TOXICOLOGY Vanco Tr 12.2 09/20/2018 [facility] Culture: Anaerobic No Anaerobes Isolated 09/19/2018 [facility] Gram Stain Report Rare WBC's No Organisms Seen 09/19/2018 [facility] Culture: Aspirate/Body Fluid/Tissue Rare Staphylococcus aureus Refer To Culture # [id number], Collected on 09/19/18 For Susceptibility Results 09/19/2018 [facility] Culture: Anaerobic No Anaerobes Isolated 09/19/2018 [facility] Gram Stain Report No Wbc'S Or Organisms Seen 09/19/2018 [facility] Culture: Aspirate/Body Fluid/Tissue Rare Staphylococcus aureus Refer To Culture # [id number], Collected on 09/19/18 For Susceptibility Results Rare Staphylococcus Species, Not S. aureus Rare Gram Pos Rods Suggestive of Diphtheroids 09/19/2018 [facility] TETRACYCLINE:SUSC:PT:ISOLATE:ORDQN:MONISHA Gram Stain Report Rare WBC's No Organisms Seen 09/19/2018 [facility] TETRACYCLINE:SUSC:PT:ISOLATE:ORDQN:MONISHA Culture: Aspirate/Body Fluid/Tissue Few Staphylococcus aureus 09/19/2018 [facility] TETRACYCLINE:SUSC:PT:ISOLATE:ORDQN:MONISHA Staphylococcus aureus Staphylococcus aureus 09/19/2018 [facility] Culture: Anaerobic No Anaerobes Isolated 09/19/2018 [facility] BLOOD BANK RESULTS ABO/Rh O POS 09/19/2018 [facility] BLOOD BANK RESULTS Antibody Scrn Negative (09/19/18 7:12 AM) 09/19/2018 [facility] CHEM PANEL eGFR 112 09/19/2018 Result Comment: [...] Sodium Lvl 139 135 - 145 09/19/2018 [facility] CHEM PANEL Glucose Lvl 103 70 - 99 09/19/2018 [facility] CHEM PANEL Calcium Lvl 8.7 8.5 - 10.5 09/19/2018 [facility] CHEM PANEL AGAP 12.3 10.0 - 20.0 09/19/2018 [facility] CHEM PANEL CO2 26 24 - 32 09/19/2018 [facility] CHEM PANEL Chloride Lvl 105 95 - 109 09/19/2018 [facility] CHEM PANEL eGFR 114 09/19/2018 Result Comment: [...] Calcium Lvl 8.7 8.5 - 10.5 09/19/2018 [facility] CHEM PANEL AGAP 7.5 10.0 - 20.0 09/19/2018 [facility] CHEM PANEL Sodium Lvl 135 135 - 145 09/19/2018 [facility] CHEM PANEL Potassium Lvl 4.5 3.5 - 5.1 09/19/2018 [facility] CHEM PANEL Chloride Lvl 104 95 - 109 09/19/2018 [facility] CHEM PANEL CO2 28 24 - 32 09/19/2018 [facility] CHEM PANEL Glucose Lvl 104 70 - 99 09/19/2018 [facility] CHEM PANEL BUN 21 7 - 22 09/19/2018 [facility] CHEM PANEL Creatinine Lvl 0.96 0.50 - 1.40 09/19/2018 [facility] HEMATOLOGY Basophils 0.6 0.0 - 1.0 09/19/2018 [facility] HEMATOLOGY Eosinophils 2.0 0.0 - 4.0 09/19/2018 [facility] Neutrophils # 4.1 1.5 - 8.1 09/19/2018 [facility] Lymphocytes # 1.3 1.0 - 5.5 09/19/2018 [facility] HEMATOLOGY Monocytes # 0.6 0.0 - 0.8 09/19/2018 [facility] Eosinophils # 0.1 0.0 - 0.5 09/19/2018 [facility] Segs 66.5 45.0 - 75.0 09/19/2018 [facility] Lymphocytes 21.7 20.0 - 40.0 09/19/2018 [facility] Monocytes 9.2 2.0 - 12.0 09/19/2018 [facility] PTT 41.3 22.9 - 35.8 09/19/2018 [facility] PT 14.6 12.0 - 14.7 09/19/2018 [facility] INR 1.16 0.85 - 1.17 09/19/2018 [facility] MCH 27.1 27.0 - 31.0 09/19/2018 [facility] MCV 84.2 80.0 - 94.0 09/19/2018 [facility] RBC 4.15 4.70 - 6.10 09/19/2018 [facility] Hct 34.9 42.0 - 54.0 09/19/2018 [facility] Hgb 11.2 14.0 - 18.0 09/19/2018 [facility] MPV 8.3 7.4 - 10.4 09/19/2018 [facility] Platelet 310 133 - 450 09/19/2018 [facility] MCHC 32.2 32.0 - 36.0 09/19/2018 [facility] WBC 6.2 3.7 - 10.4 09/19/2018 [facility] RDW 14.3 11.5 - 14.5 09/19/2018 [facility] AMPICILLIN+SULBACTAM:SUSC:PT:ISOLATE:ORDQN:MONISHA Gram Stain Report No Wbc'S Or Organisms Seen 09/18/2018 [facility] AMPICILLIN+SULBACTAM:SUSC:PT:ISOLATE:ORDQN:MONISHA Culture: Wound/Abscess w/Gram Stain Moderate Staphylococcus aureus Few Group B Streptococcus No susceptibility performed since these organisms are predictably susceptible to penicillin. If patient is penicillin allergic or susceptibility testing for additional antibiotics is clinically warranted please call the laboratory. 09/18/2018 [facility] AMPICILLIN+SULBACTAM:SUSC:PT:ISOLATE:ORDQN:MONISHA Staphylococcus aureus Staphylococcus aureus 09/18/2018 [facility] DRUG SCREEN U Benzodiaz Scr Negative *NA* (09/18/18 12:25 PM) Negative 09/18/2018 [facility] DRUG SCREEN U Cocaine Scr Negative *NA* (09/18/18 12:25 PM) Negative 09/18/2018 [facility] DRUG SCREEN U Opiate Scr Positive *ABN* (09/18/18 12:25 PM) Negative 09/18/2018 [facility] DRUG SCREEN UDS Note See Note (09/18/18 12:25 PM) 09/18/2018 [facility] DRUG SCREEN U Phencyclidine Scr Negative *NA* (09/18/18 12:25 PM) Negative 09/18/2018 [facility] DRUG SCREEN U Cannab Scr Negative *NA* (09/18/18 12:25 PM) Negative 09/18/2018 [facility] DRUG SCREEN U Amph Scr Negative *NA* (09/18/18 12:25 PM) Negative 09/18/2018 [facility] DRUG SCREEN U Herminia Scr Negative *NA* (09/18/18 12:25 PM) Negative 09/18/2018 [facility] URINE AND STOOL UA Mucus Few /LPF None Seen /LPF 09/18/2018 [facility] URINE AND STOOL UA RBC 2 0 - 2 09/18/2018 [facility] URINE AND STOOL UA Bacteria Occasional /HPF None Seen /HPF 09/18/2018 [facility] URINE AND STOOL UA Glucose Negative *NA* (09/18/18 12:25 PM) Negative 09/18/2018 [facility] URINE AND STOOL UA Ketones Negative *NA* (09/18/18 12:25 PM) Negative 09/18/2018 [facility] URINE AND STOOL UA Bili Negative *NA* (09/18/18 12:25 PM) Negative 09/18/2018 [facility] URINE AND STOOL UA Blood Small *ABN* (09/18/18 12:25 PM) Negative 09/18/2018 [facility] URINE AND STOOL UA Sq Epi Few /LPF Few /LPF 09/18/2018 [facility] URINE AND STOOL UA Leuk Est Moderate *ABN* (09/18/18 12:25 PM) Negative 09/18/2018 [facility] URINE AND STOOL UA Protein Negative (09/18/18 12:25 PM) Negative 09/18/2018 [facility] URINE AND STOOL UA WBC 38 0 - 5 09/18/2018 [facility] URINE AND STOOL UA Nitrite Negative (09/18/18 12:25 PM) Negative 09/18/2018 [facility] URINE AND STOOL UA Urobilinogen <=1.0 mg/dL 0.1 - 1.0 09/18/2018 [facility] URINE AND STOOL UA Turbidity Slight *ABN* (09/18/18 12:25 PM) Clear 09/18/2018 [facility] URINE AND STOOL UA pH 5.0 5.0 - 8.0 09/18/2018 [facility] URINE AND STOOL UA Spec Grav 1.019 <=1.030 09/18/2018 [facility] URINE AND STOOL UA Color Yellow *NA* (09/18/18 12:25 PM) Yellow 09/18/2018 [facility] URINE CHEM U Creatinine 142.00 09/18/2018 [facility] URINE CHEM U Sodium 42 09/18/2018 [facility] CARDIAC ENZYMES BNP 192 <=100 pg/mL 09/18/2018 [facility] MPV 8.1 7.4 - 10.4 09/18/2018 [facility] Platelet 310 133 - 450 09/18/2018 [facility] RDW 14.3 11.5 - 14.5 09/18/2018 [facility] RBC 4.20 4.70 - 6.10 09/18/2018 [facility] HEMATOLOGY WBC 7.4 3.7 - 10.4 09/18/2018 [facility] MCH 26.6 27.0 - 31.0 09/18/2018 [facility] MCV 83.5 80.0 - 94.0 09/18/2018 [facility] MCHC 31.9 32.0 - 36.0 09/18/2018 [facility] Hct 35.1 42.0 - 54.0 09/18/2018 [facility] Hgb 11.2 14.0 - 18.0 09/18/2018 [facility] Eosinophils # 0.1 0.0 - 0.5 09/18/2018 [facility] HEMATOLOGY Monocytes # 0.7 0.0 - 0.8 09/18/2018 [facility] HEMATOLOGY Basophils 0.5 0.0 - 1.0 09/18/2018 [facility] HEMATOLOGY Eosinophils 1.3 0.0 - 4.0 09/18/2018 [facility] HEMATOLOGY Monocytes 10.1 2.0 - 12.0 09/18/2018 [facility] HEMATOLOGY Neutrophils # 5.4 1.5 - 8.1 09/18/2018 [facility] Lymphocytes # 1.1 1.0 - 5.5 09/18/2018 [facility] HEMATOLOGY Segs 73.1 45.0 - 75.0 09/18/2018 [facility] HEMATOLOGY Lymphocytes 15.0 20.0 - 40.0 09/18/2018 [facility] CARDIAC ENZYMES Troponin-I <0.02 0.00 - 0.40 08/26/2018 [facility] CHEM PANEL Globulin 5.5 2.7 - 4.2 08/26/2018 [facility] CHEM PANEL AGAP 5.8 10.0 - 20.0 08/26/2018 [facility] CHEM PANEL B/C Ratio 19 6 - 25 08/26/2018 [facility] CHEM PANEL A/G Ratio 0.6 0.7 - 1.6 08/26/2018 [facility] CHEM PANEL Alk Phos 107 39 - 136 08/26/2018 [facility] CHEM PANEL ALT 37 0 - 65 08/26/2018 [facility] CHEM PANEL AST 19 0 - 37 08/26/2018 [facility] CHEM PANEL Bili Total 0.5 0.2 - 1.3 08/26/2018 [facility] CHEM PANEL eGFR 83 08/26/2018 Result Comment: [...] should be multiplied by the estimated BMI. [facility] CHEM PANEL Creatinine Lvl 1.11 0.50 - 1.40 08/26/2018 [facility] CHEM PANEL Potassium Lvl 3.8 3.5 - 5.1 08/26/2018 [facility] CHEM PANEL BUN 21 7 - 22 08/26/2018 [facility] CHEM PANEL Glucose Lvl 130 70 - 99 08/26/2018 [facility] CHEM PANEL Sodium Lvl 141 135 - 145 08/26/2018 [facility] CHEM PANEL CO2 32 24 - 32 08/26/2018 [facility] CHEM PANEL Calcium Lvl 8.3 8.5 - 10.5 08/26/2018 [facility] CHEM PANEL Chloride Lvl 107 95 - 109 08/26/2018 [facility] CHEM PANEL Total Protein 8.7 6.4 - 8.4 08/26/2018 [facility] CHEM PANEL Albumin Lvl 3.2 3.5 - 5.0 08/26/2018 [facility] HEMATOLOGY PTT 42.8 22.9 - 35.8 08/26/2018 [facility] HEMATOLOGY INR 1.23 0.85 - 1.17 08/26/2018 [facility] HEMATOLOGY PT 15.3 12.0 - 14.7 08/26/2018 [facility] WBC 8.0 3.7 - 10.4 08/26/2018 [facility] RBC 4.11 4.70 - 6.10 08/26/2018 [facility] Hgb 11.4 14.0 - 18.0 08/26/2018 [facility] Hct 34.7 42.0 - 54.0 08/26/2018 [facility] RDW 14.0 11.5 - 14.5 08/26/2018 [facility] Platelet 276 133 - 450 08/26/2018 [facility] MPV 8.8 7.4 - 10.4 08/26/2018 [facility] MCV 84.5 80.0 - 94.0 08/26/2018 [facility] MCH 27.7 27.0 - 31.0 08/26/2018 [facility] MCHC 32.8 32.0 - 36.0 08/26/2018 [facility] Neutrophils # 5.8 1.5 - 8.1 08/26/2018 [facility] Lymphocytes # 1.4 1.0 - 5.5 08/26/2018 [facility] Monocytes # 0.6 0.0 - 0.8 08/26/2018 [facility] HEMATOLOGY Eosinophils # 0.1 0.0 - 0.5 08/26/2018 [facility] HEMATOLOGY Basophils # 0.1 0.0 - 0.2 08/26/2018 [facility] HEMATOLOGY Segs 72.8 45.0 - 75.0 08/26/2018 [facility] HEMATOLOGY Lymphocytes 17.5 20.0 - 40.0 08/26/2018 [facility] HEMATOLOGY Monocytes 7.9 2.0 - 12.0 08/26/2018 [facility] HEMATOLOGY Eosinophils 1.1 0.0 - 4.0 08/26/2018 [facility] HEMATOLOGY Basophils 0.7 0.0 - 1.0 08/26/2018 [facility] CARDIAC ENZYMES Total CK 105 12 - 191 03/07/2018 [facility] CARDIAC ENZYMES Troponin-I <0.02 0.00 - 0.40 03/07/2018 [facility] CARDIAC ENZYMES BNP 200 <=100 pg/mL 03/07/2018 [facility] CHEM PANEL Phosphorus 3.2 2.5 - 4.5 03/07/2018 [facility] CHEM PANEL Lipase Lvl 63 73 - 393 03/07/2018 [facility] CHEM PANEL Magnesium Lvl 2.0 1.8 - 2.4 03/07/2018 [facility] ELECTROLYTES AGAP 15.0 10.0 - 20.0 03/07/2018 [facility] ELECTROLYTES B/C Ratio 16 6 - 25 03/07/2018 [facility] ELECTROLYTES A/G Ratio 0.7 0.7 - 1.6 03/07/2018 [facility] ELECTROLYTES Globulin 4.9 2.7 - 4.2 03/07/2018 [facility] ELECTROLYTES eGFR 125 03/07/2018 Result Comment: The [...] should be multiplied by the estimated BMI. [facility] ELECTROLYTES Alk Phos 70 39 - 136 03/07/2018 [facility] ELECTROLYTES ALT 32 0 - 65 03/07/2018 [facility] ELECTROLYTES AST 20 0 - 37 03/07/2018 [facility] ELECTROLYTES Bili Total 0.8 0.2 - 1.3 03/07/2018 [facility] ELECTROLYTES Total Protein 8.5 6.4 - 8.4 03/07/2018 [facility] ELECTROLYTES Albumin Lvl 3.6 3.5 - 5.0 03/07/2018 [facility] ELECTROLYTES CO2 24 24 - 32 03/07/2018 [facility] ELECTROLYTES Calcium Lvl 8.5 8.5 - 10.5 03/07/2018 [facility] ELECTROLYTES Chloride Lvl 107 95 - 109 03/07/2018 [facility] ELECTROLYTES Creatinine Lvl 0.87 0.50 - 1.40 03/07/2018 [facility] ELECTROLYTES Sodium Lvl 142 135 - 145 03/07/2018 [facility] ELECTROLYTES Potassium Lvl 4.0 3.5 - 5.1 03/07/2018 [facility] ELECTROLYTES BUN 14 7 - 22 03/07/2018 [facility] ELECTROLYTES Glucose Lvl 101 70 - 99 03/07/2018 [facility] HEMATOLOGY Lymphocytes 23.2 20.0 - 40.0 03/07/2018 [facility] HEMATOLOGY Segs 62.9 45.0 - 75.0 03/07/2018 [facility] HEMATOLOGY Monocytes 9.8 2.0 - 12.0 03/07/2018 [facility] HEMATOLOGY Eosinophils # 0.2 0.0 - 0.5 03/07/2018 [facility] HEMATOLOGY Eosinophils 3.2 0.0 - 4.0 03/07/2018 [facility] HEMATOLOGY Neutrophils # 3.0 1.5 - 8.1 03/07/2018 [facility] HEMATOLOGY Basophils 0.9 0.0 - 1.0 03/07/2018 [facility] HEMATOLOGY Monocytes # 0.5 0.0 - 0.8 03/07/2018 [facility] HEMATOLOGY Lymphocytes # 1.1 1.0 - 5.5 03/07/2018 [facility] HEMATOLOGY PT 14.5 12.0 - 14.7 03/07/2018 [facility] HEMATOLOGY INR 1.13 0.85 - 1.17 03/07/2018 [facility] HEMATOLOGY Platelet 279 133 - 450 03/07/2018 [facility] HEMATOLOGY RDW 13.6 11.5 - 14.5 03/07/2018 [facility] HEMATOLOGY MCHC 32.7 32.0 - 36.0 03/07/2018 [facility] MPV 8.6 7.4 - 10.4 03/07/2018 [facility] HEMATOLOGY Hgb 12.6 14.0 - 18.0 03/07/2018 [facility] RBC 4.47 4.70 - 6.10 03/07/2018 [facility] HEMATOLOGY MCV 85.9 80.0 - 94.0 03/07/2018 [facility] HEMATOLOGY Hct 38.4 42.0 - 54.0 03/07/2018 [facility] MCH 28.1 27.0 - 31.0 03/07/2018 [facility] WBC 4.8 3.7 - 10.4 03/07/2018 [facility] CHEM PANEL eGFR 129 01/28/2017 Result Comment: [...] should be multiplied by the estimated BMI. [facility] CHEM PANEL Potassium Lvl 3.8 3.5 - 5.1 01/28/2017 [facility] CHEM PANEL Chloride Lvl 103 95 - 109 01/28/2017 [facility] CHEM PANEL Sodium Lvl 140 135 - 145 01/28/2017 [facility] CHEM PANEL AGAP 13.8 10.0 - 20.0 01/28/2017 [facility] CHEM PANEL CO2 27 24 - 32 01/28/2017 [facility] CHEM PANEL Calcium Lvl 8.8 8.5 - 10.5 01/28/2017 [facility] CHEM PANEL Glucose Lvl 127 70 - 99 01/28/2017 [facility] CHEM PANEL BUN 17 7 - 22 01/28/2017 [facility] CHEM PANEL Creatinine Lvl 0.82 0.50 - 1.40 01/28/2017 [facility] CHEM PANEL Magnesium Lvl 2.3 1.8 - 2.4 01/28/2017 [facility] ELECTROLYTES AGAP 12.5 10.0 - 20.0 01/27/2017 [facility] ELECTROLYTES eGFR 121 01/27/2017 Result Comment: The [...] should be multiplied by the estimated BMI. [facility] ELECTROLYTES BUN 15 7 - 22 01/27/2017 [facility] ELECTROLYTES Creatinine Lvl 0.92 0.50 - 1.40 01/27/2017 [facility] ELECTROLYTES Glucose Lvl 113 70 - 99 01/27/2017 [facility] ELECTROLYTES Potassium Lvl 3.5 3.5 - 5.1 01/27/2017 [facility] ELECTROLYTES Sodium Lvl 141 135 - 145 01/27/2017 [facility] ELECTROLYTES CO2 27 24 - 32 01/27/2017 [facility] ELECTROLYTES Calcium Lvl 8.4 8.5 - 10.5 01/27/2017 [facility] ELECTROLYTES Chloride Lvl 105 95 - 109 01/27/2017 [facility] HEMATOLOGY Lymphocytes # 1.6 1.0 - 5.5 01/27/2017 [facility] HEMATOLOGY Eosinophils # 0.1 0.0 - 0.5 01/27/2017 [facility] HEMATOLOGY Monocytes # 0.5 0.0 - 0.8 01/27/2017 [facility] HEMATOLOGY Basophils 0.6 0.0 - 1.0 01/27/2017 [facility] HEMATOLOGY Segs-Bands # 3.9 1.5 - 8.1 01/27/2017 [facility] HEMATOLOGY Monocytes 7.6 2.0 - 12.0 01/27/2017 [facility] Lymphocytes 26.0 20.0 - 40.0 01/27/2017 [facility] HEMATOLOGY Eosinophils 1.3 0.0 - 4.0 01/27/2017 [facility] HEMATOLOGY Segs 64.5 45.0 - 75.0 01/27/2017 [facility] MPV 8.6 7.4 - 10.4 01/27/2017 [facility] RBC 4.48 4.70 - 6.10 01/27/2017 [facility] HEMATOLOGY WBC 6.0 3.7 - 10.4 01/27/2017 [facility] HEMATOLOGY Hgb 12.3 14.0 - 18.0 01/27/2017 [facility] Hct 37.5 42.0 - 54.0 01/27/2017 [facility] MCHC 32.9 32.0 - 36.0 01/27/2017 [facility] RDW 15.3 11.5 - 14.5 01/27/2017 [facility] Platelet 278 133 - 450 01/27/2017 [facility] MCH 27.5 27.0 - 31.0 01/27/2017 [facility] MCV 83.7 80.0 - 94.0 01/27/2017 [facility] CARDIAC ENZYMES Total CK 363 12 - 191 01/27/2017 [facility] CARDIAC ENZYMES Troponin-I <0.02 0.00 - 0.40 01/27/2017 [facility] CARDIAC ENZYMES CK MB <0.5 0.5 - 3.6 01/27/2017 [facility] CARDIAC ENZYMES Troponin-I <0.02 0.00 - 0.40 01/26/2017 [facility] CARDIAC ENZYMES CK MB <0.5 0.5 - 3.6 01/26/2017 [facility] CARDIAC ENZYMES Total CK 433 12 - 191 01/26/2017 [facility] CARDIAC ENZYMES BNP 377 <=100 pg/mL 01/26/2017 [facility] CHEM PANEL Magnesium Lvl 2.2 1.8 - 2.4 01/26/2017 [facility] ELECTROLYTES AGAP 10.0 10.0 - 20.0 01/26/2017 [facility] ELECTROLYTES eGFR 129 01/26/2017 Result Comment: The [...] should be multiplied by the estimated BMI. [facility] ELECTROLYTES Sodium Lvl 142 135 - 145 01/26/2017 [facility] ELECTROLYTES BUN 15 7 - 22 01/26/2017 [facility] ELECTROLYTES Potassium Lvl 4.0 3.5 - 5.1 01/26/2017 [facility] ELECTROLYTES Creatinine Lvl 0.82 0.50 - 1.40 01/26/2017 [facility] ELECTROLYTES Calcium Lvl 8.6 8.5 - 10.5 01/26/2017 [facility] ELECTROLYTES CO2 29 24 - 32 01/26/2017 [facility] ELECTROLYTES Chloride Lvl 107 95 - 109 01/26/2017 [facility] ELECTROLYTES Glucose Lvl 100 70 - 99 01/26/2017 [facility] HEMATOLOGY Segs 57.7 45.0 - 75.0 01/26/2017 [facility] Monocytes 7.5 2.0 - 12.0 01/26/2017 [facility] Lymphocytes 33.1 20.0 - 40.0 01/26/2017 [facility] Eosinophils 1.0 0.0 - 4.0 01/26/2017 [facility] Segs-Bands # 3.4 1.5 - 8.1 01/26/2017 [facility] HEMATOLOGY Basophils 0.7 0.0 - 1.0 01/26/2017 [facility] Lymphocytes # 2.0 1.0 - 5.5 01/26/2017 [facility] HEMATOLOGY Monocytes # 0.4 0.0 - 0.8 01/26/2017 [facility] Eosinophils # 0.1 0.0 - 0.5 01/26/2017 [facility] MPV 8.6 7.4 - 10.4 01/26/2017 [facility] Platelet 304 133 - 450 01/26/2017 [facility] RBC 4.74 4.70 - 6.10 01/26/2017 [facility] Hgb 13.0 14.0 - 18.0 01/26/2017 [facility] HEMATOLOGY WBC 5.9 3.7 - 10.4 01/26/2017 [facility] HEMATOLOGY RDW 15.1 11.5 - 14.5 01/26/2017 [facility] HEMATOLOGY MCV 84.4 80.0 - 94.0 01/26/2017 [facility] HEMATOLOGY MCHC 32.4 32.0 - 36.0 01/26/2017 [facility] HEMATOLOGY Hct 40.1 42.0 - 54.0 01/26/2017 [facility] MCH 27.3 27.0 - 31.0 01/26/2017 [facility] CARDIAC ENZYMES BNP 295 <=100 pg/mL 01/26/2017 [facility] CARDIAC ENZYMES CK MB 0.9 0.5 - 3.6 01/26/2017 [facility] CARDIAC ENZYMES Troponin-I 0.02 0.00 - 0.40 01/26/2017 [facility] CARDIAC ENZYMES Total CK 485 12 - 191 01/26/2017 [facility] CARDIAC ENZYMES CK MB Index 0.2 0.0 - 2.5 01/26/2017 [facility] CHEM PANEL Magnesium Lvl 2.0 1.8 - 2.4 01/26/2017 [facility] HEMATOLOGY PTT 31.7 22.9 - 35.8 01/26/2017 [facility] MCH 27.3 27.0 - 31.0 01/26/2017 [facility] HEMATOLOGY WBC 5.4 3.7 - 10.4 01/26/2017 [facility] HEMATOLOGY MCV 84.1 80.0 - 94.0 01/26/2017 [facility] HEMATOLOGY Hgb 12.8 14.0 - 18.0 01/26/2017 [facility] HEMATOLOGY Hct 39.3 42.0 - 54.0 01/26/2017 [facility] HEMATOLOGY RBC 4.67 4.70 - 6.10 01/26/2017 [facility] HEMATOLOGY MPV 8.4 7.4 - 10.4 01/26/2017 [facility] HEMATOLOGY RDW 15.2 11.5 - 14.5 01/26/2017 [facility] HEMATOLOGY MCHC 32.5 32.0 - 36.0 01/26/2017 [facility] HEMATOLOGY Platelet 313 133 - 450 01/26/2017 [facility] HEMATOLOGY INR 1.10 0.85 - 1.17 01/26/2017 [facility] HEMATOLOGY PT 14.4 12.0 - 14.7 01/26/2017 [facility] HEMATOLOGY Eosinophils 1.7 0.0 - 4.0 01/26/2017 [facility] HEMATOLOGY Basophils # 0.1 0.0 - 0.2 01/26/2017 [facility] HEMATOLOGY Segs 54.8 45.0 - 75.0 01/26/2017 [facility] HEMATOLOGY Lymphocytes 35.1 20.0 - 40.0 01/26/2017 [facility] HEMATOLOGY Monocytes 7.0 2.0 - 12.0 01/26/2017 [facility] HEMATOLOGY Lymphocytes # 1.9 1.0 - 5.5 01/26/2017 [facility] HEMATOLOGY Monocytes # 0.4 0.0 - 0.8 01/26/2017 [facility] HEMATOLOGY Eosinophils # 0.1 0.0 - 0.5 01/26/2017 [facility] HEMATOLOGY Basophils 1.4 0.0 - 1.0 01/26/2017 [facility] HEMATOLOGY Segs-Bands # 3.0 1.5 - 8.1 01/26/2017 [facility] CHEM PANEL Lactic Acid Lvl 0.9 0.5 - 2.2 01/06/2017 [facility] CARDIAC ENZYMES BNP 388 <=100 pg/mL 01/06/2017 [facility] CARDIAC ENZYMES Troponin-I <0.02 0.00 - 0.40 01/06/2017 [facility] CARDIAC ENZYMES CK MB <0.5 0.5 - 3.6 01/06/2017 [facility] CARDIAC ENZYMES Total CK 136 12 - 191 01/06/2017 [facility] CARDIAC ENZYMES CK MB Index <0.4 0.0 - 2.5 01/06/2017 [facility] CHEM PANEL BUN 17 7 - 22 01/06/2017 [facility] CHEM PANEL Creatinine Lvl 0.95 0.50 - 1.40 01/06/2017 [facility] CHEM PANEL Sodium Lvl 140 135 - 145 01/06/2017 [facility] CHEM PANEL Potassium Lvl 3.8 3.5 - 5.1 01/06/2017 [facility] CHEM PANEL Glucose Lvl 113 70 - 99 01/06/2017 [facility] CHEM PANEL A/G Ratio 0.7 0.7 - 1.6 01/06/2017 [facility] CHEM PANEL Globulin 4.4 2.7 - 4.2 01/06/2017 [facility] CHEM PANEL B/C Ratio 18 6 - 25 01/06/2017 [facility] CHEM PANEL Bili Total 1.0 0.2 - 1.3 01/06/2017 [facility] CHEM PANEL Alk Phos 66 39 - 136 01/06/2017 [facility] CHEM PANEL AST 22 0 - 37 01/06/2017 [facility] CHEM PANEL AGAP 7.8 10.0 - 20.0 01/06/2017 [facility] CHEM PANEL Calcium Lvl 8.5 8.5 - 10.5 01/06/2017 [facility] CHEM PANEL Total Protein 7.6 6.4 - 8.4 01/06/2017 [facility] CHEM PANEL Albumin Lvl 3.2 3.5 - 5.0 01/06/2017 [facility] CHEM PANEL Chloride Lvl 107 95 - 109 01/06/2017 [facility] CHEM PANEL CO2 29 24 - 32 01/06/2017 [facility] CHEM PANEL ALT 36 0 - 65 01/06/2017 [facility] CHEM PANEL eGFR 117 01/06/2017 Result Comment: [...] should be multiplied by the estimated BMI. [facility] HEMATOLOGY INR 1.09 0.85 - 1.17 01/06/2017 [facility] HEMATOLOGY PT 14.3 12.0 - 14.7 01/06/2017 [facility] HEMATOLOGY PTT 34.5 22.9 - 35.8 01/06/2017 [facility] HEMATOLOGY MPV 8.7 7.4 - 10.4 01/06/2017 [facility] HEMATOLOGY Platelet 280 133 - 450 01/06/2017 [facility] HEMATOLOGY RDW 15.1 11.5 - 14.5 01/06/2017 [facility] MCHC 32.4 32.0 - 36.0 01/06/2017 [facility] MCH 27.3 27.0 - 31.0 01/06/2017 [facility] Hgb 12.3 14.0 - 18.0 01/06/2017 [facility] HEMATOLOGY Hct 37.9 42.0 - 54.0 01/06/2017 [facility] HEMATOLOGY MCV 84.2 80.0 - 94.0 01/06/2017 [facility] HEMATOLOGY WBC 6.7 3.7 - 10.4 01/06/2017 [facility] HEMATOLOGY RBC 4.51 4.70 - 6.10 01/06/2017 [facility] HEMATOLOGY Eosinophils # 0.1 0.0 - 0.5 01/06/2017 [facility] HEMATOLOGY Basophils # 0.1 0.0 - 0.2 01/06/2017 [facility] HEMATOLOGY Monocytes # 0.5 0.0 - 0.8 01/06/2017 [facility] HEMATOLOGY Lymphocytes # 1.8 1.0 - 5.5 01/06/2017 [facility] Eosinophils 1.4 0.0 - 4.0 01/06/2017 [facility] HEMATOLOGY Segs-Bands # 4.2 1.5 - 8.1 01/06/2017 [facility] Basophils 0.8 0.0 - 1.0 01/06/2017 [facility] Monocytes 7.5 2.0 - 12.0 01/06/2017 [facility] HEMATOLOGY Segs 63.6 45.0 - 75.0 01/06/2017 [facility] Lymphocytes 26.7 20.0 - 40.0 01/06/2017 [facility] CARDIAC ENZYMES BNP 260 <=100 pg/mL 10/09/2016 [facility] CARDIAC ENZYMES Troponin-I <0.02 0.00 - 0.40 10/09/2016 [facility] CARDIAC ENZYMES CK MB <0.5 0.5 - 3.6 10/09/2016 [facility] CARDIAC ENZYMES Total CK 175 12 - 191 10/09/2016 [facility] CARDIAC ENZYMES CK MB Index <0.3 0.0 - 2.5 10/09/2016 [facility] CHEM PANEL eGFR 127 10/09/2016 Result Comment: [...] should be multiplied by the estimated BMI. [facility] CHEM PANEL Creatinine Lvl 0.87 0.50 - 1.40 10/09/2016 [facility] CHEM PANEL Sodium Lvl 136 135 - 145 10/09/2016 [facility] CHEM PANEL BUN 9 7 - 22 10/09/2016 [facility] CHEM PANEL Glucose Lvl 120 70 - 99 10/09/2016 [facility] CHEM PANEL B/C Ratio 10 6 - 25 10/09/2016 [facility] CHEM PANEL A/G Ratio 0.6 0.7 - 1.6 10/09/2016 [facility] CHEM PANEL ALT 53 0 - 65 10/09/2016 [facility] CHEM PANEL Globulin 5.6 2.7 - 4.2 10/09/2016 [facility] CHEM PANEL Bili Total 1.4 0.2 - 1.3 10/09/2016 [facility] CHEM PANEL AGAP 12.7 10.0 - 20.0 10/09/2016 [facility] CHEM PANEL AST 34 0 - 37 10/09/2016 [facility] CHEM PANEL Alk Phos 98 39 - 136 10/09/2016 [facility] CHEM PANEL Potassium Lvl 3.7 3.5 - 5.1 10/09/2016 [facility] CHEM PANEL CO2 28 24 - 32 10/09/2016 [facility] CHEM PANEL Calcium Lvl 8.5 8.5 - 10.5 10/09/2016 [facility] CHEM PANEL Total Protein 8.8 6.4 - 8.4 10/09/2016 [facility] CHEM PANEL Albumin Lvl 3.2 3.5 - 5.0 10/09/2016 [facility] CHEM PANEL Chloride Lvl 99 95 - 109 10/09/2016 [facility] HEMATOLOGY Hgb 11.7 14.0 - 18.0 10/09/2016 [facility] HEMATOLOGY RBC 4.29 4.70 - 6.10 10/09/2016 [facility] HEMATOLOGY WBC 7.0 3.7 - 10.4 10/09/2016 [facility] HEMATOLOGY MCV 81.2 80.0 - 94.0 10/09/2016 [facility] HEMATOLOGY Platelet 278 133 - 450 10/09/2016 [facility] RDW 14.7 11.5 - 14.5 10/09/2016 [facility] MCHC 33.6 32.0 - 36.0 10/09/2016 [facility] MCH 27.2 27.0 - 31.0 10/09/2016 [facility] MPV 8.7 7.4 - 10.4 10/09/2016 [facility] Hct 34.8 42.0 - 54.0 10/09/2016 [facility] Lymphocytes # 1.4 1.0 - 5.5 10/09/2016 [facility] Monocytes # 0.6 0.0 - 0.8 10/09/2016 [facility] Segs 70.9 45.0 - 75.0 10/09/2016 [facility] Lymphocytes 19.8 20.0 - 40.0 10/09/2016 [facility] Monocytes 8.2 2.0 - 12.0 10/09/2016 [facility] Eosinophils 0.7 0.0 - 4.0 10/09/2016 [facility] Basophils 0.4 0.0 - 1.0 10/09/2016 [facility] Segs-Bands # 5.0 1.5 - 8.1 10/09/2016 [facility] Pathology Reports No Data Provided for This [...] represent hematoma/seroma or abscess. SL: LANCE 09/18/2018 [facility] Chest 2 views DX Patient Name: LINSEY NAVARRO : 1980; Age: 38 years y/o Male MR: [id number] Study: Chest 2 views DX 09/18/2018 10:23 [...] IMPRESSION: Stable marked cardiomegaly. SL: KENNY 09/18/2018 [facility] Retroperitoneal Complete US Clinical Indication: - jose; [...] 1. Unremarkable renal U/S SL: MARTHA 09/18/2018 [facility] Ext Lower non vascular US Exam: Ext [...] is advised. No evidence of pseudoaneurysm. SL: [id number] 09/18/2018 [facility] Ext Lower Arterial Doppler unilat US Clinical [...] groin hematoma. No evidence of pseudoaneurysm. SL: [id number] 08/26/2018 [facility] Foot series DX RIGHT FOOT RADIOGRAPH 3 VIEW CLINICAL INDICATION: Right foot pain and swelling - right lateral foot pain worse with walking COMPARISON: None IMPRESSION: There is generalized soft tissue swelling of the foot and ankle. No subcutaneous emphysema or radiopaque foreign bodies are identified. No acute bony abnormalities are visualized. The joint spaces are maintained. SL:16 07/19/2018 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 SL: [id number] 06/06/2018 [facility] 1view DX EXAM: XR CHEST 1 VIEW [...] pulmonary vascular congestion and pulmonary edema. SL: [id number] 04/23/2018 [facility] 2 views DX Clinical Indication: Shortness of [...] prior radiograph from 03/07/2018. SL: [id number] 03/15/2018 [facility] 2 views DX Clinical Indication: - cough, [...] no evidence of heart failure . SL: [id number] 03/07/2018 [facility] 1view DX Clinical Indication:37 years Male with [...] 2. Cardiomegaly with mild interstitial edema. 01/27/2017 [facility] 1view DX Study: Chest 1view DX Clinical Indication: - chf? Comparison: Chest x-ray from 01/06/2017 FINDINGS: Cardiac silhouette is mildly enlarged. Mild pulmonary edema is seen. There is no pleural effusion or pneumothorax. The osseous structures are unremarkable. IMPRESSION: Mild pulmonary edema. SL: [id number] 01/26/2017 [facility] Pulmonary Embolism CTA Patient Name: LINSEY NAVARRO : 1980; Age: 36 years Male MR: [id number] Study: Chest Pulmonary Embolism CTA 01/06/2017 5:41 [...] is considered less likely. 3. Cardiomegaly. SL: [id number] 01/06/2017 [facility] 2 views DX Study: 2 view chest compared to 10/09/2016 History: Cough Comments: The trachea is midline. The cardiomediastinal silhouette is normal in size. Mild bilateral interstitial prominence. Atypical pneumonia cannot be excluded. No pleural effusions or pneumothorax. Impression: Mild bilateral interstitial prominence. Atypical pneumonia cannot be excluded. No bronchopneumonia 01/06/2017 [facility] 1view DX Portable chest: The cardiac silhouette is enlarged. There is pulmonary venous congestion with mild right hilar edema, increasing slightly since 07/30/2016. There is no significant effusion. There is no other change. [id number] 10/09/2016 [facility] Chest 2 views DX EXAM: Chest radiographs HISTORY: Chest pain COMPARISON: 11/17/2011 TECHNIQUE: Frontal and lateral views of the chest FINDINGS: Stable cardiomegaly. Interstitial prominence bilaterally may reflect edema or pneumonia. No significant pleural effusion. SL: [id number] 07/30/2016 [facility] Consultation Notes No Data Provided for This Section Discharge Summaries No Data Provided for This Section History and Physicals No Data Provided for This Section Vital Signs Vital Sign Value Date Comments Source Systolic (mm Hg) 109 09/22/2018 [facility] Diastolic (mm Hg) 77 09/22/2018 [facility] Heart Rate 104 09/22/2018 [facility] Respitory Rate 16 09/22/2018 [facility] Temperature Oral (F) 98.6 F 09/22/2018 [facility] Systolic (mm Hg) 96 09/22/2018 [facility] Diastolic (mm Hg) 66 09/22/2018 [facility] Respitory Rate 16 09/22/2018 [facility] Heart Rate 102 09/22/2018 [facility] Temperature Oral (F) 97.9 F 09/22/2018 [facility] Systolic (mm Hg) 104 09/22/2018 [facility] Diastolic (mm Hg) 73 09/22/2018 [facility] Respitory Rate 16 09/22/2018 [facility] Temperature Oral (F) 97.9 F 09/22/2018 [facility] Heart Rate 94 09/22/2018 [facility] Height 167.64 cm 09/18/2018 [facility] BMI Calculated 54.67 09/18/2018 [facility] Weight 153.636 09/18/2018 [facility] Respitory Rate 18 08/26/2018 [facility] Heart Rate 96 08/26/2018 [facility] Systolic (mm Hg) 125 08/26/2018 [facility] Diastolic (mm Hg) 72 08/26/2018 [facility] Temperature Oral (F) 98.0 F 08/26/2018 [facility] Systolic (mm Hg) 125 08/26/2018 [facility] Diastolic (mm Hg) 72 08/26/2018 [facility] Respitory Rate 17 08/26/2018 [facility] Systolic (mm Hg) 104 08/26/2018 [facility] Diastolic (mm Hg) 86 08/26/2018 [facility] Respitory Rate 16 08/26/2018 [facility] Heart Rate 99 08/26/2018 [facility] Temperature Oral (F) 98.1 F 08/26/2018 [facility] Systolic (mm Hg) 98 08/18/2018 [facility] Diastolic (mm Hg) 72 08/18/2018 [facility] Systolic (mm Hg) 118 08/18/2018 [facility] Diastolic (mm Hg) 71 08/18/2018 [facility] Systolic (mm Hg) 110 08/18/2018 [facility] Diastolic (mm Hg) 74 08/18/2018 [facility] Temperature Oral (F) 98.1 F 08/18/2018 [facility] Respitory Rate 21 08/18/2018 [facility] Temperature Oral (F) 98.0 F 08/18/2018 [facility] Weight 153.636 08/18/2018 [facility] BMI Calculated 54.67 08/18/2018 [facility] Height 167.64 cm 08/18/2018 [facility] Respitory Rate 20 07/20/2018 [facility] Heart Rate 97 07/20/2018 [facility] Systolic (mm Hg) 92 07/20/2018 [facility] Diastolic (mm Hg) 65 07/20/2018 [facility] Temperature Oral (F) 98.0 F 07/20/2018 [facility] Respitory Rate 20 07/20/2018 [facility] Heart Rate 103 07/20/2018 [facility] Systolic (mm Hg) 110 07/20/2018 [facility] Diastolic (mm Hg) 70 07/20/2018 [facility] Weight 155.45 07/20/2018 [facility] BMI Calculated 53.68 07/20/2018 [facility] Temperature Oral (F) 98.1 F 07/20/2018 [facility] Height 170.18 cm 07/20/2018 [facility] Temperature Oral (F) 98.2 F 03/07/2018 [facility] Systolic (mm Hg) 123 03/07/2018 [facility] Diastolic (mm Hg) 80 03/07/2018 [facility] Respitory Rate 17 03/07/2018 [facility] Respitory Rate 22 03/07/2018 [facility] Systolic (mm Hg) 101 03/07/2018 [facility] Diastolic (mm Hg) 89 03/07/2018 [facility] Systolic (mm Hg) 124 03/07/2018 [facility] Diastolic (mm Hg) 91 03/07/2018 [facility] Heart Rate 107 03/07/2018 [facility] Respitory Rate 18 03/07/2018 [facility] Temperature Oral (F) 98.6 F 03/07/2018 [facility] Systolic (mm Hg) 99 01/28/2017 [facility] Diastolic (mm Hg) 72 01/28/2017 [facility] Heart Rate 104 01/28/2017 [facility] Heart Rate 99 01/28/2017 [facility] Temperature Oral (F) 98 F 01/28/2017 [facility] Systolic (mm Hg) 109 01/28/2017 [facility] Diastolic (mm Hg) 81 01/28/2017 [facility] Respitory Rate 12 01/28/2017 [facility] Heart Rate 96 01/28/2017 [facility] Temperature Oral (F) 97.9 F 01/28/2017 [facility] Respitory Rate 18 01/28/2017 [facility] Systolic (mm Hg) 128 01/28/2017 [facility] Diastolic (mm Hg) 86 01/28/2017 [facility] Respitory Rate 18 01/28/2017 [facility] Temperature Oral (F) 98 F 01/28/2017 [facility] Weight 155.864 01/27/2017 [facility] BMI Calculated 56.12 01/26/2017 [facility] Weight 157.727 01/26/2017 [facility] Height 167.64 cm 01/26/2017 [facility] Weight 111.364 01/26/2017 [facility] Height 167.64 cm 01/26/2017 [facility] BMI Calculated 39.63 01/26/2017 [facility] Systolic (mm Hg) 114 01/06/2017 [facility] Diastolic (mm Hg) 83 01/06/2017 [facility] Heart Rate 99 01/06/2017 [facility] Respitory Rate 18 01/06/2017 [facility] Temperature Oral (F) 98.1 F 01/06/2017 [facility] Heart Rate 88 01/06/2017 [facility] Respitory Rate 18 01/06/2017 [facility] Systolic (mm Hg) 111 01/06/2017 [facility] Diastolic (mm Hg) 93 01/06/2017 [facility] Systolic (mm Hg) 121 01/06/2017 [facility] Diastolic (mm Hg) 91 01/06/2017 [facility] Respitory Rate 18 01/06/2017 [facility] Heart Rate 97 01/06/2017 [facility] Temperature Oral (F) 99.0 F 01/06/2017 [facility] Height 167.64 cm 01/06/2017 [facility] BMI Calculated 39.63 01/06/2017 [facility] Weight 111.364 01/06/2017 [facility] Temperature Oral (F) 100.0 F 10/09/2016 [facility] Systolic (mm Hg) 127 10/09/2016 [facility] Diastolic (mm Hg) 88 10/09/2016 [facility] Heart Rate 106 10/09/2016 [facility] Respitory Rate 16 10/09/2016 [facility] Respitory Rate 19 10/09/2016 [facility] Weight 150 10/09/2016 [facility] BMI Calculated 51.79 10/09/2016 [facility] Temperature Oral (F) 100.5 F 10/09/2016 [facility] Heart Rate 114 10/09/2016 [facility] Respitory Rate 16 10/09/2016 [facility] Height 170.18 cm 10/09/2016 [facility] Systolic (mm Hg) 110 10/09/2016 [facility] Diastolic (mm Hg) 73 10/09/2016 [facility] Systolic (mm Hg) 136 07/30/2016 [facility] Diastolic (mm Hg) 62 07/30/2016 [facility] Respitory Rate 16 07/30/2016 [facility] Heart Rate 101 07/30/2016 [facility] Temperature Oral (F) 99.5 F 07/30/2016 [facility] Systolic (mm Hg) 118 07/30/2016 [facility] Diastolic (mm Hg) 73 07/30/2016 [facility] Respitory Rate 18 07/30/2016 [facility] Heart Rate 75 07/30/2016 [facility] Temperature Oral (F) 99.1 F 07/30/2016 [facility] Respitory Rate 20 07/30/2016 [facility] Height 167.64 cm 07/30/2016 [facility] Weight 154.545 07/30/2016 [facility] BMI Calculated 54.99 07/30/2016 [facility] Temperature Oral (F) 100.1 F 07/30/2016 [facility] Systolic (mm Hg) 121 07/30/2016 [facility] Diastolic (mm Hg) 72 07/30/2016 [facility] Heart Rate 102 07/30/2016 [facility] Encounters Location Location Details Encounter Type Encounter Number Reason For Visit Attending Provider ADM Date DC Date Status Source [facility] Emergency [id number] Chely Montoya 07/30/2016 07/30/2016 [facility] Emergency [id number] Dahlia Parvin 10/09/2016 10/09/2016 [facility] Emergency [id number] Conner Weeks 01/06/2017 01/06/2017 [facility] Inpatient [id number] Avila Venecia 01/26/2017 01/28/2017 [facility] Emergency [id number] Nitin Pacheco 03/07/2018 03/07/2018 [facility] Emergency [id number] Shayna Marie 07/20/2018 07/20/2018 [facility] Bed[facility] Outpatient [id number] Ja Silveira 08/18/2018 08[facility]18[facility]2018 [facility] [facility] [id number] Carlos Preston 08/26/2018 08/26/2018 [facility] [id number] Dave Torres Jr 09/18/2018 09/22/2018 [facility] Procedures Procedure Code Date Perfomer Comments Source Cardiac catheterization, left heart [id number] 08/18/2018 [facility] Assessment and Plan Assessment and Plan Date Source Extracted from:Title: [facility] Service Discharge Summary Author: Dave Madsen MD Date: 09/22/18 [facility] Service Discharge Summary PATIENT NAME:LINSEY NAVARRO III ATTENDING: DAVE TORRES JR, MD ADMISSION DATE: 09/18/2018 04:24 DISCHARGE DATE: 09/22/2018 15:25 DISCHARGE DIAGNOSIS: Cellulitis of groin (L03.314) Infected hematoma of groin Morbid obesity Contusion of abdominal wall, initial encounter (S30.1XXA) Non-ischemic cardiomyopathy CONSULTING PHYSICIANS/SERVICES: David Mart MD Office: Service: Cardiology Sadneep Samayoa MD Office: Service: Cardiology Rodney Long [...] held as an outpatient by his private senior training and development rep. DISCHARGE INSTRUCTIONS: Please notify your physician if [...] no rhonchi Heart: S1, S2, regular rhythm. INTEGRATED LOGISTICS SUPPORT MANAGER: No focal sign Wounds: Location: right groin [...] midnight Linda Ritchie MD P Hospitalist 09/22/2018 [facility] Extracted from:Title: Clinical Document Author: Channing Ibaenz MD Date: 01/28/17 [facility] Discharge Note [facility] Channing Ibanez MD SUBJECTIVE: Patient [...] with. He will also follow-up with his senior training and development rep now. DISCHARGE NOTE: Condition: improved Activity: as tolerated Diet: cardiac Follow up: dr. pablo in 1-2 weeks, dr. samuel for sleep study Medications: see d/c mars Special instructions: the patient was instructed to check his weights daily, and if his weight increased by more than 5 pounds to call his senior training and development rep, or if he were to become short of breath, he was instructed to go to the emergency department immediately. DC time: 35 min Extracted from:Title: Clinical Document Author: Vickey Pablo MD Date: 01/27/17 Cardiology Progress Note Vickey Pablo MD [facility] Subjective: Events noted, chart [...] ml INJ 40 mg 0.4 mL, SUB-Q, [id number] furosemide 10mg/ml INJ 4ml VL 40 mg [...] Author: Channing Ibanez MD Date: 01/26/17 [facility] Channing Ibanez MD SUBJECTIVE: Patient seen and examined, events reviewed regarding admission History of present illness: Mr. Navarro is a very pleasant 37-year-old -[place] male who presents here through the emergency [...] his girlfriend. 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 Family history: Diabetes Hypertension Coronary artery disease [...] based on this patient's clinical course 01/28/2017 [facility] Plan of Care No Data Provided for This Section Social History Social History Date Source Social History TypeResponse Substance Abuse Use: None. Alcohol Current, Type Liquor. Frequency: 1-2 times per week. Smoking Status Never smoker; Exposure to Tobacco Smoke None; Cigarette Smoking Last 365 Days No; Reg Smoking Cessation Counseling No entered on: 09/18/18 06/06/2018 [facility] Social History TypeResponse Substance Abuse Use: None. Alcohol Current, Type Liquor. Frequency: 1-2 times per week. Smoking Status Never smoker; Exposure to Tobacco Smoke None; Cigarette Smoking Last 365 Days No; Reg Smoking Cessation Counseling No entered on: 06/06/18 06/06/2018 [facility] Family History No Data Provided for This Section Advance Directives No Data Provided for This Section Functional Status No Data Provided for This Section
[2019-03-12] MEDS ORDERED: ONDANSETRON HCL INJ 2MG/ML 2ML 2 MG/ML VIAL IV STA (15:59)
[2019-03-12] MEDS ORDERED: ONDANSETRON HCL INJ 2MG/ML 2ML 2 MG/ML VIAL ONE (16:18)
--- NOTE | 2019-03-12 16:41 | Diagnostic Imaging Report ---
Examination: Single AP view of the chest. COMPARISON: None. INDICATION: Weakness, cough DISCUSSION: The lungs are well-inflated and without consolidation, pleural effusion, or pneumothorax. Moderate enlargement of the cardiac silhouette with prominence of the central pulmonary vasculature. No acute osseous abnormalities. IMPRESSION: Enlargement of the cardiac silhouette with pulmonary venous congestion. Signed by: Dr. Jet Ocampo M.D. on 03/12/2019 4:38 PM
[2019-03-12] MEDS ORDERED: FUROSEMIDE INJ 10 MG/ML 4 ML VIAL IV NR (17:00)
[2019-03-12] MEDS ORDERED: FUROSEMIDE INJ 10 MG/ML 4 ML VIAL ONE (17:03)
--- NOTE | 2019-03-12 17:05 | NUR ---
[facility] called for transport.
[2019-03-12] MEDS: CEFTRIAXONE SOD 1 GM/NS 50 ML 50 ML IV SCH (18:10)
[2019-03-12] MEDS ORDERED: CEFTRIAXONE SOD 1 GM/NS 50 ML 50 ML IV ONE (18:15)
[2019-03-12 18:36] VITALS: BP 108/67
--- NOTE | 2019-03-12 19:19 | NUR ---
PATIENT IN STABLE CONDITION WITH NO S/S OF RESPIRATORY DISTRESS- NO PAIN VOICED. CALL LIGHT IS WITHIN REACH, PATIENT INSTRUCTED TO CALL FOR ASSISTANCE NEEDED. BEDSIDE REPORT GIVEN TO ONCOMING NURSE.
--- NOTE | 2019-03-12 19:45 | NUR ---
PATIENT IS AOX4 NO SIGNS OF DISTRESS NOTED. PATIENT DOES NOT COMPLAIN OF SHORTNESS OF BREATH AND LUNGS SOUND CLEAR. BED IS IN LOWEST POSITION AND LOCKED, BOTH SIDE RAILS ARE UP, CALL LIGHT WITHIN REACH, WILL CONTINUE TO MONITOR.
[2019-03-12] MEDS: ACETAMINOPHEN 325 MG TAB PO PRN (20:10)
[2019-03-12] MEDS ORDERED: SPIRONOLACTONE 25 MG TAB PO ONE (21:00)
[2019-03-12 21:08] LABS: AMPHETAMINES SCREEN,URINE NEGATIVE (NEGATIVE); BENZODIAZEPINES SCREEN,URINE NEGATIVE (NEGATIVE); PHENCYCLIDINE SCREEN,URINE NEGATIVE (NEGATIVE)
[2019-03-12 21:13] LABS: LEUKOCYTE ESTERASE ,URINE TRACE (NEGATIVE); PROTEIN,URINE DIPSTICK TRACE (NEGATIVE)
[2019-03-12 21:16] LABS: BILIRUBIN,URINE NEGATIVE (NEGATIVE); CLARITY,URINE CLEAR (CLEAR); COLOR,URINE YELLOW (YELLOW); KETONES,URINE NEGATIVE (NEGATIVE); NITRITE,URINE NEGATIVE (NEGATIVE); URINE UROBILINOGEN 0.2 mg/dL (0.2 - 1)
[2019-03-12] MEDS: FUROSEMIDE 40 MG TAB PO SCH (21:17)
[2019-03-12] MEDS: CARVEDILOL 12.5 MG TAB PO SCH (21:18)
[2019-03-12 21:43] VITALS: BP 108/67
[2019-03-12 21:45] VITALS: BP 108/67
[2019-03-12 22:07] LABS: BACTERIA,URINE MANY /HPF; EPITHELIAL CELLS,URINE FEW /LPF; RBC,URINE 0-5 /HPF (0-5); WBC,URINE (MAN) >50 /HPF (0-5)
[2019-03-13] VITALS (8 sets, daily range): BP systolic 91–136; BP diastolic 57–79
[2019-03-13 02:56] LABS: CREATINE KINASE MB 0.3 ng/mL (0-5.0)
[2019-03-13] MEDS: ACETAMINOPHEN 325 MG TAB PO PRN ×3 (06:41→20:25)
--- NOTE | 2019-03-13 06:46 | Diagnostic Imaging Report ---
Examination: Single AP view of the chest. COMPARISON: AP chest 03/12/2019 INDICATION: CHF IMPRESSION: 1. Lines and Tubes: None 2. Lungs are well-inflated. Bilateral perihilar interstitial opacities consistent with interstitial edema. No consolidation or effusion. 3. Stable enlargement of the cardiac silhouette. Central pulmonary venous congestion. 4. No acute bony abnormalities. Signed by: Dr. Shaun Taylor M.D. on 03/13/2019 6:42 AM
--- NOTE | 2019-03-13 07:00 | NUR ---
received am report from nurse and morning rounds done. pt is sleeping in bed, no s/s of distress. call light within reach
--- NOTE | 2019-03-13 07:37 | NUR ---
pt refused morning lab draw
--- NOTE | 2019-03-13 07:44 | NUR ---
tech informed nurse of o2 sat 88% on room air, pt has o2 protocol but refused oxygen. pt education rendered and informed Dr. David
[2019-03-13] MEDS ORDERED: PANTOPRAZOLE SOD 40 MG TABEC PO ONE (07:45)
[2019-03-13] MEDS ORDERED: POTASSIUM CHLORIDE 20 MEQ TAB CR PO STA (07:49)
[2019-03-13] MEDS ORDERED: SODIUM CHLORIDE 0.9% 1000ML 1,000 ML IV SCH (08:00)
[2019-03-13] MEDS: HEPARIN SOD (PORCINE) 5,000 UNIT/ML VIAL SC SCH ×2 (09:00→19:48)
[2019-03-13] MEDS: CARVEDILOL 12.5 MG TAB PO SCH (09:00)
[2019-03-13] MEDS ORDERED: SPIRONOLACTONE 25 MG TAB PO SCH (09:00)
[2019-03-13] MEDS: FUROSEMIDE 40 MG TAB PO SCH ×2 (09:11→16:43)
--- NOTE | 2019-03-13 09:14 | NUR ---
PT REFUSED TO RECEIVED IVF (NS @ 50ML), PT EDUCATION RENDERED, WILL NOTIFY DR. PLAZA
--- NOTE | 2019-03-13 11:22 | NUR ---
Dr. Mcknight is at the bedside
--- NOTE | 2019-03-13 11:36 | NUR ---
Dr. Mcknight gave new orders and stated that the patient is cleared from central stores attendant standpoint
--- NOTE | 2019-03-13 14:30 | History and Physical ---
CHIEF COMPLAINT: This is a 39-year-old male, who comes in with generalized weakness and feeling bad and dyspnea. HISTORY OF PRESENTING ILLNESS: Mr. Navarro with a history of questionable congestive heart failure, history of hypertension, was in usual state of health until about 2 days prior to admission, the patient has started feeling nausea more than anything, some amount of discomfort in the upper abdomen and had a generalized feeling of weakness and came to the emergency room, was found to have cardiomegaly and symptoms suggestive of heart failure, was admitted for the same. PAST MEDICAL HISTORY: History of hypertension and history of morbid obesity. PAST SURGICAL HISTORY: No past surgical history. ALLERGIES: THE PATIENT HAS NO DRUG ALLERGIES. SOCIAL HISTORY: No history of EtOH. No history of IV drug abuse. FAMILY HISTORY: Noncontributory. REVIEW OF SYSTEMS: Negative for chest pain. Positive for some shortness of breath. Positive for nausea. No vomiting. No diarrhea. No constipation. No rectal bleeding. No hematochezia. No hematemesis. Positive for abdominal pain. Positive also for suprapubic pain too. PHYSICAL EXAMINATION: GENERAL: The patient is alert and oriented x3. Morbidly obese. VITAL SIGNS: Temperature is 100.7. CVS: S1 and S2 normal. Regular rate and rhythm. ABDOMEN: Tender in the right upper quadrant and also in the epigastrium. EXTREMITIES: No clubbing, no cyanosis, and no edema. LABORATORY VALUES: Initial urine showed more than 50 white count, leukocyte esterase is trace, and many bacteria. Chemistry shows CK, CK-MB, and troponins are negative and this was done at the [facility]. Other admission labs include a white count of 4.6, hemoglobin of 12.7, and hematocrit of 33.2. Sodium was 134, potassium 3.3, glucose of 120, BUN 24, creatinine of 1.9, AST 15, ALT of 49, and total bilirubin was 0.9. CBC had no left shift. Urine drug screen was negative. Chest x-ray done at the [facility] without consolidation, pleural effusion, or pneumothorax. Moderate enlargement of cardiac silhouette with prominence of central pulmonary vasculature. ASSESSMENT: Mr. Juan Ramon Navarro with. 1. Dyspnea. 2. Abdominal pain. 3. History of congestive heart failure. 4. History of hypertension. 5. Fever. PLAN: At this time would be to do echocardiogram and abdominal ultrasound to rule out gallbladder pathology. Start him on Protonix 40 mg b.i.d. p.o. for GI prophylaxis. For DVT prophylaxis, we will start the patient on heparin. Continue on antibiotics. At this time, the patient is currently on Rocephin. Blood cultures and urine cultures are pending. The patient also has acute kidney injury. I will go ahead and infuse the patient with 50 mL an hour of normal saline. Further recommendation per clinical course and also depending on echo and ultrasound results. Additional history, the patient had a cardiac cath recently about [address] Mart at [facility], which was normal. Hernan David MD ASJ/MODL /[id number]
[2019-03-13] MEDS: CEFTRIAXONE SOD 1 GM/NS 50 ML 50 ML IV SCH (16:43)
--- NOTE | 2019-03-13 16:45 | Consultation ---
DATE OF CONSULTATION: 03/13/2019 Cardiology Consultation CONSULTING PHYSICIAN: Dr. Alvin Mcknight, Interventional Cardiology. REASON FOR CONSULTATION: Heart failure. HISTORY OF PRESENT ILLNESS: Mr. Navarro is a pleasant 39-year-old with morbid obesity and a BMI calculated to 49.4, known chronic systolic heart failure, for which he has undergone previous coronary angiogram reportedly without significant obstructive coronary artery disease requiring any intervention, and for which he is receiving outpatient optimal medical therapy for his heart failure and followed up with Cardiology as outpatient. He presents to the hospital with complaints of increased fatigue and nausea. He is noted on initial workup in the ER to have pulmonary venous congestion on his chest x-ray and was started on diuretics. Today, he feels better. His nausea has resolved. His fatigue is improving. He is ambulating in the cooper with no reported limiting dyspnea or chest discomfort and he describes at this point, no leg edema. He has no other current complaints. Denies palpitations, syncope, or lightheadedness. On telemetry, he has been noted to have sinus rhythm. REVIEW OF SYSTEMS: A 12-system review is negative except for as noted above. PAST MEDICAL HISTORY: Significant for hypertension, dyslipidemia, and morbid obesity. FAMILY HISTORY: Noncontributory. SOCIAL HISTORY: Denies smoking, alcohol, or drugs. PHYSICAL EXAMINATION: VITAL SIGNS: Temperature 98.3, heart rate 65, blood pressure 98/73, respiratory rate 19, and O2 saturation 93%. BMI 49.5. GENERAL: In no acute distress, alert, sitting upright. NECK: He is currently without any distended jugular vein. He has no carotid bruits. CHEST: Clear to auscultation bilaterally, however, with diminished breath sounds at the bases. CARDIOVASCULAR: Regular rate and rhythm. Normal S1 and S2. No S3, no S4. No murmurs or rubs. ABDOMEN: Soft and nontender. Bowel sounds positive. Morbidly obese. EXTREMITIES: Warm distal extremities with no edema, euthermic. SKIN: Dry and intact. Mucosa moist. HEENT: Pupils equal and reactive. CARDIOVASCULAR MEDICATIONS: Reviewed. Carvedilol 25 mg b.i.d., furosemide 80 mg IV b.i.d., spironolactone 25 mg daily, and heparin 5000 units subcutaneous q.12 hours. STUDIES: Reviewed and significant. Troponin I 0.045. CK-MB 0.3 and CK 86. UDS is negative. Chest x-ray significant for a large cardiomediastinal silhouette and central pulmonary venous congestion. His EKG shows sinus rhythm, biatrial enlargement, and poor R-wave progression, possible LVH with repolarization. Echocardiogram reviewed. Severely dilated left ventricle with severe impairment left ventricular systolic function. Left ventricular ejection fraction less than 20%, trace MR and TR. ASSESSMENT: 1. [id number]-[id number] severe systolic heart failure with LVEF less than 20% in the setting of reported nonischemic cardiomyopathy. 2. Nausea and fatigue, improved. 3. Morbid obesity. RECOMMENDATIONS: 1. The patient was previously on metoprolol 25 mg extended-release at home today and on carvedilol 25 b.i.d. and furosemide IV. Blood pressure is on the low side of normal. Recommend discontinuation of carvedilol and is resuming metoprolol extended- release 12.5 mg daily to allow room for addition of Entresto 24/26 mg every 12 hour and continuing Lasix and spironolactone p.r.n. The patient and family were updated on findings. Advised on the importance of followup for ICD candidacy after 3 months of optimal medical therapy. The patient is currently receiving HF medication and wants to follow up as outpatient with his storyboard artist for defibrillator, which has been advised. 2. He has been taking phentermine, which has adverse cardiac risks and he has been encouraged to discontinue this medication. 3. Weight loss with diet and exercise have been encouraged. Low-salt diet and daily weights have been discussed. The patient is okay to discharge from a cardiovascular standpoint. Please feel free to call with any questions or concerns. Thank you, Dr. David, for the opportunity to participate in the care of Juan Ramon. Please feel free to call with any questions [phone]. MD KELLIE Encarnacion/ROSA /[id number] PATRICIA
[2019-03-13] MEDS ORDERED: CARVEDILOL 12.5 MG TAB PO SCH (17:00)
[2019-03-13] MEDS: VALSARTAN/SACUBITRIL 24MG/26MG 1 EA TAB PO SCH (20:25)
--- NOTE | 2019-03-13 20:32 | NUR ---
PATIENT AOX4 NO SIGNS OF DISTRESS NOTED. PATIENT COMPLAINED OF HEADACHE AND WAS MEDICATED ORDERED. INFORMED PATIENT THAT HE WILL BE GETTING LABS IN THE MORNING AND HE AGREED TO DO SO, PATIENT HAD PREVIOUSLY REFUSED LABS THE WHOLE DAY. BED IS IN LOW POSITION, BOTH SIDE RAILS ARE UP, CALL LIGHT WITHIN EASY REACH, WILL CONTINUE TO MONITOR.
--- NOTE | 2019-03-13 22:35 | Diagnostic Imaging Report ---
EXAM: Right Upper Quadrant Ultrasound INDICATION: ^abdominal pain ^[id number] ^2001 COMPARISON: None. TECHNIQUE: Transverse and longitudinal images of the right upper abdomen were obtained. FINDINGS: Liver: Size: 16.3 cm in the right midclavicular line, borderline enlarged Appearance: Normal echogenicity, smooth contour Mass: No focal masses Gallbladder: Stones/Sludge: None Wall: 0.2 cm Appearance: No wall thickening, pericholecystic fluid or hydrops. Sonographic Aleman's Sign: Negative Bile Ducts: Intrahepatic Ducts: No dilatation Extrahepatic Ducts: Common bile duct measures 0.3 cm, no dilatation Pancreas: Visualized portions of the pancreatic neck and proximal body are normal. Kidneys: Length: Right 11.0 cm Echogenicity: Normal Collecting System: No hydronephrosis Stone: None Cyst/Mass: None Vessels: Aorta: Visualized portions are normal Inferior Vena Cava: Visualized portions are normal Main Portal Vein: 0.7 cm, normal size with hepatopetal flow. Free Fluid: No ascites or pleural effusion IMPRESSION: 1. The liver is borderline enlarged. No focal lesions. Otherwise, unremarkable exam. Signed by: Dr. Shaun Taylor M.D. on 03/13/2019 10:31 PM
[2019-03-14 00:35] VITALS: BP 100/58
[2019-03-14 00:55] VITALS: BP 100/58
[2019-03-14 05:27] VITALS: BP 105/63
[2019-03-14 06:11] LABS: BASOPHILS % 0.5 % (0.0-1.0); HEMATOCRIT 36.2 % (38.2-49.6); HEMOGLOBIN 11.9 g/dL (14.0-18.0); LYMPHOCYTES # (AUTO) 0.8 (1.0-3.2); LYMPHOCYTES % 21.9 % (18.0-39.1); MEAN CORPUSCULAR HEMOGLOBIN 27.3 pg (28-32); MEAN CORPUSCULAR HGB CONC 32.9 g/dL (31-35); MONOCYTES # (AUTO) 0.4 (0.2-0.8); MONOCYTES % 9.4 % (4.4-11.3); NEUTROPHILS # (AUTO) 2.6 (2.1-6.9); NEUTROPHILS % 66.9 % (38.7-80.0); PLATELET COUNT 280 x10e3/uL (140-360); RED BLOOD COUNT 4.36 x10e6/uL (4.3-5.7); RED CELL DISTRIBUTION WIDTH 13.2 % (11.7-14.4)
[2019-03-14 06:38] LABS: BLOOD UREA NITROGEN 33 mg/dL (7-26); BUN/CREATININE RATIO 25 (6-25); CALCIUM 9.5 mg/dL (8.4-10.2); CARBON DIOXIDE 32 mmol/L (22-29); CHLORIDE 89 mmol/L (98-107); CREATININE, SERUM 1.32 mg/dL (0.72-1.25); EST GLOMERULAR FILTRATION RATE > 60 ML/MIN (60-); GLUCOSE 115 mg/dL (74-118); SODIUM 132 mmol/L (136-145)
[2019-03-14 07:36] VITALS: BP 94/71
[2019-03-14 08:00] VITALS: BP 94/71
[2019-03-14] MEDS ORDERED: POTASSIUM CHLORIDE 20 MEQ TAB CR PO ONE (08:00)
[2019-03-14] MEDS ORDERED: METOPROLOL SUCCINATE 25 MG TAB XL PO SCH (09:00)
[2019-03-14] MEDS ORDERED: METOPROLOL SUCC25 MG PO (09:36)
[2019-03-14] MEDS ORDERED: entresto PO (09:38)
[2019-03-14] MEDS: VALSARTAN/SACUBITRIL 24MG/26MG 1 EA TAB PO SCH (09:39)
--- NOTE | 2019-03-14 10:08 | NUR ---
Spoke with Dr. David and let him know pt is adamant about going home. Received orders to to discharge pt home and he will call in antibiotics to pharmacy. Also called Dr. David with final result of urine culture and sensitivity. Dr. Mcknight here to see pt and left prescription for pt.
--- NOTE | 2019-03-14 10:42 | NUR ---
Pt discharged home at this time. 0 s/s of acute distress noted at time of discharge. Pt denies any pain at time of discharge. Pt verbalized understanding of all discharge instructions and follow up instructions.
--- NOTE | 2019-03-14 12:07 | Progress Note ---
DATE: 03/14/2019 Cardiology Progress Note SUBJECTIVE: Juan Ramon denies any chest pain, shortness of breath, lightheadedness, syncope, palpitations, or fatigue. Today, he feels better overall. OBJECTIVE: VITAL SIGNS: Temperature 100 degrees, heart rate 75, respiratory rate 17, blood pressure 94/71, and O2 saturation 92% on room air. GENERAL: In no acute distress, alert. NECK: No JVD. CHEST: Clear to auscultation. CARDIOVASCULAR: Regular rate and rhythm. Normal S1 and S2. No S3 and no S4. ABDOMEN: Soft and nontender. EXTREMITIES: No cyanosis, clubbing, or edema. CARDIOVASCULAR MEDICATIONS: Reviewed. 1. Entresto 24/26 mg tablet one every 12 hours. 2. Furosemide 80 mg b.i.d. IV. 3. Spironolactone 25 mg daily. 4. Metoprolol succinate 12.5 mg extended release daily. 5. Heparin 5000 units subcu every 12 hours. STUDIES: Reviewed. White blood cells 3.8, hemoglobin 11.9, and platelets 280. PTT 38. Sodium 132, potassium 3, chloride 89, bicarbonate 32, BUN 33, creatinine 1.32, glucose 115, calcium 9.5, troponin I 0.045, and BNP 214. On telemetry, reviewed in sinus rhythm. ASSESSMENT: 1. Acute on chronic severe systolic heart failure with left ventricular ejection fraction less than 20% and dilated left ventricle in the setting of reported nonischemic cardiomyopathy. 2. Nausea and fatigue, now improved. 3. Morbid obesity. RECOMMENDATIONS: 1. Continue metoprolol extended release 12.5 mg at bedtime. 2. Decrease on discharge Lasix to 80 mg once a day with additional p.r.n. Lasix 80 mg in p.m. if weight increases more than 2-3 pounds from a day to day. This has been discussed with the patient in presence of nurse. 3. Continue spironolactone at current dose of 25 mg daily. 4. Continue Entresto 24/26 mg tablets one every 12 hours. Prescription has been provided to the patient as in the chart. 5. Discontinue phentermine. 6. Weight loss by diet and exercise have been encouraged. 7. Maintain low-sodium diet. 8. Daily weights. 9. Okay to discharge from a cardiovascular standpoint with outpatient followup with Cardiology for consideration of ICD. Thank you for the opportunity to participate in the care of Mr. Navarro. Please feel free to call with any questions. MD KELLIE Encarnacion/LOLAL /[id number]
--- NOTE | 2019-03-14 23:16 | Progress Note ---
DATE: Progress note and discharge summary. SUBJECTIVE: The patient is a 39-year-old male, who comes in with shortness of breath. The patient was found to have an EF less than 20% on echocardiography. A consult with Dr. Mcknight has been done. The patient has been suggested to get an ICD placement for low EF and acute systolic heart failure. The patient has a campus wellness coordinator Dr. Mart at [facility]. He says he will follow up with that, Cardiology has cleared the patient to go home and also recommended we start the patient back on his metoprolol 12.5 mg extended release daily. The patient's phentermine has been discontinued. The patient's carvedilol has been discontinued. The patient has been started on Crestor and Aldactone. Urine culture has grown ESBL. PHYSICAL EXAMINATION: GENERAL: The patient is alert and oriented x3. HEART: The patient has S1, S2 normal. Regular rate and rhythm. ABDOMEN: Nontender, nondistended. LUNGS: Clear to auscultation bilaterally. EXTREMITIES: No clubbing, no cyanosis, no edema. VITAL SIGNS: Temperature is 100, pulse of 75, respirations of 17, and blood pressure is 94/71. The patient's pulse ox of 92% on room air. HEENT: Normocephalic. LABORATORY VALUES: Show white count 3.84 from 23rd. Chemistries show sodium of 132, potassium 3.0, BUN of 33, and creatinine of 1.32 with BNP of 214. Microbiology shows E. coli, sensitive to Bactrim and sensitive to Rocephin too. ASSESSMENT: Congestive heart failure, acute on chronic. The patient is on Lasix and also on beta blockade and also started on Entresto by Dr. Mcknight. The patient is to follow up with his campus wellness coordinator, Dr. Mart. The patient has been noncompliant in the hospital, has refused multiple blood draws, and also requested an ICD and follow up with his campus wellness coordinator. Also, the patient has been asked to decrease the amount of metoprolol and Lasix, but the patient chooses to stay on metoprolol 25 mg ER. 3 Entresto have been given to the patient. PLAN: To discharge the patient again on Bactrim DS one tablet daily. The patient is advised to follow up with his primary care physician in next one to two days to check his BMP secondary to low potassium. The patient has been given 40 mEq of potassium while in the hospital. Further recommendation as an outpatient. The patient is again given strict ER warnings and also to follow up with his campus wellness coordinator and his primary care physician in the next one to two days to assess his condition again and also his urinary tract infection. For further information, look in the chart. For medicines on discharge, please look into the medical reconciliation sheet and again the patient is given strict ER warnings in lieu of his rather poor health and poor medical condition. MD JESUS Kelly/MODL /[id number]
== END 2019-03-14 10:42 | disposition home or self-care (01) ==
LOC: FSED 15:49 → ERHOLD 15:59 → MED/SURG3 18:44
PROVIDERS: ADMIT Family Medicine; ATTEND Family Medicine
DX: I11.0 Hypertensive heart disease with heart failure (principal); R06.00 Dyspnea, unspecified; R10.9 Unspecified abdominal pain; R50.9 Fever, unspecified; E78.5 Hyperlipidemia, unspecified; I50.43 Acute on chronic combined systolic (congestive) and diastolic (congestive) heart failure; I42.9 Cardiomyopathy, unspecified; E66.01 Morbid (severe) obesity due to excess calories; Z68.42 Body mass index [BMI] 45.0-49.9, adult; Z53.29 Procedure and treatment not carried out because of patient's decision for other reasons
CPT/HCPCS: 36415; 71045; 76705; 80048; 80053; 80307; 81001; 82550; 82553; 83880; 84484; 85025; 85730; 87086; 87186; 93005; 93306; 99284; G0378; J0696; J1644; J1940; J2405; J7030

== ENCOUNTER 2019-07-23 16:45 | Emergency (ER) | payer OTHER ==
[~2019-07-23] VITALS: Ht 170.2 cm; Wt 143.3 kg
[~2019-07-23 16:45] MED LIST changes: +METOPROLOL SUCC25 MG PO; +entresto PO
[2019-07-23] MEDS ORDERED: PHENTERMINE H37.5 M1 (17:11)
[2019-07-23] MEDS ORDERED: COLCHICINE0.6 M1 (17:11)
[2019-07-23] MEDS ORDERED: FUROSEMIDE80 MG (17:11)
[2019-07-23] MEDS ORDERED: METOPROLOL TART25 MG (17:11)
[2019-07-23] MEDS ORDERED: ALLOPURINOL300 MG (17:11)
[2019-07-23] MEDS ORDERED: METOLAZONE2.5 MG (17:11)
[2019-07-23] MEDS: ONDANSETRON HCL INJ 2MG/ML 2ML 2 MG/ML VIAL IV ONE (17:41)
--- NOTE | 2019-07-23 17:49 | Diagnostic Imaging Report ---
EXAMINATION: CT of the abdomen and pelvis without contrast. TECHNIQUE: Helical CT images of the abdomen and pelvis were performed from the lung bases to the lesser trochanters. No intravenous contrast was given per renal stone protocol. Coronal and sagittal reformatted images were obtained.Dose modulation, iterative reconstruction, and/or weight based adjustment of the mA/kV was utilized to reduce the radiation dose to as low as reasonably achievable. COMPARISON: None. CLINICAL HISTORY:Abdominal pain, diarrhea DISCUSSION: ABSENCE OF INTRAVENOUS CONTRAST DECREASES SENSITIVITY FOR DETECTION OF FOCAL LESIONS AND VASCULAR PATHOLOGY. ABDOMEN/PELVIS: LOWER THORAX: Heart enlarged. HEPATOBILIARY:No focal hepatic lesions. No biliary ductal dilation. The gallbladder is normal. SPLEEN: No splenomegaly. PANCREAS: No focal masses or ductal dilatation. ADRENALS: No adrenal nodules. KIDNEYS/URETERS: No hydronephrosis, stones, or solid mass lesions. PELVIC ORGANS/BLADDER: The bladder is normal. PERITONEUM/RETROPERITONEUM: No free air or fluid. LYMPH NODES: No intra-abdominal,retroperitoneal, pelvic or inguinal lymphadenopathy. VESSELS: The celiac trunk,superior and inferior mesenteric and bilateral renal arteries are patent The portal, superior mesenteric and splenic veins are patent. GI TRACT: No distention or wall thickening. Scattered diverticulosis. Appendix normal. BONES AND SOFT TISSUES: No bony destructive lesions. No soft tissue abnormalities. IMPRESSION: No acute CT finding. Signed by: Dr. Dharmesh Mays M.D. on 07/23/2019 5:47 PM
== END 2019-07-23 18:00 | disposition home or self-care (01) ==
LOC: FSED 16:45
DX: R10.9 Unspecified abdominal pain (principal); R11.2 Nausea with vomiting, unspecified; K52.9 Noninfective gastroenteritis and colitis, unspecified
CPT/HCPCS: 74176; 93005; 99284; J2405